=== PATIENT | male | born 1945 | race Caucasian/White ===

== ENCOUNTER 2017-12-07 18:30 | Emergency (ER) | payer OTHER ==
--- NOTE | 2017-12-07 23:12 | EDPHYS ---
Physician Documentation [facility] Name: Feliciano Polo Age: 72 yrs Sex: Male : 1945 Arrival Date: 12/07/2017 Time: 18:39 Bed 11 Private MD: out of town, doctor ED Physician Steven Espinal HPI: 12/07 21:10 This 72 yrs old Male presents to ER via Ambulatory with complaints of pm1 Swelling Left Elbow. 21:10 The patient or guardian complains of swelling. The complaints affect the left elbow. pm1 Context: The problem was sustained at home, resulted from unknown cause, no trauma or injury. Onset: The symptoms/episode began/occurred 3 day(s) ago. Treatment prior to arrival includes: no previous treatment. Modifying factors: The symptoms are alleviated by nothing. the symptoms are aggravated by nothing. Associated signs and symptoms: Pertinent negatives: decreased range of motion, deformity, fever, numbness, pain, tingling, warmth. Severity of symptoms: in the emergency department the symptoms are unchanged, No better but no worse. The patient has not experienced similar symptoms in the past. Historical: - Allergies: 19:52 No Known Allergies; ea - Home Meds: 19:50 Aspirin Childrens 81 mg oral chew 1 tab once daily [Active]; lisinopril Oral [Active]; ea escitalopram oxalate 10 mg oral tab [Active]; Nexium Oral [Active]; gabapentin oral oral [Active]; Crestor oral oral [Active]; Eliquis oral oral [Active]; - PMHx: 19:52 neck cancer; High Cholesterol; ea - PSHx: 19:52 trache; ea - Immunization history:: Adult Immunizations up to date. - Social history:: Smoking status: Patient/guardian denies using tobacco. - Ebola Screening: : Patient negative for fever greater than or equal to 101.5 degrees Fahrenheit, and additional compatible Ebola Virus Disease symptoms Patient denies exposure to infectious person Patient denies travel to an Ebola-affected area in the 21 days before illness onset. ROS: 21:10 Constitutional: Negative for fever, chills, and weight loss, Neck: Negative for injury, pm1 pain, and swelling, Cardiovascular: Negative for chest pain, palpitations, and edema, Respiratory: Negative for shortness of breath, cough, wheezing, and pleuritic chest pain, Abdomen/GI: Negative for abdominal pain, nausea, vomiting, diarrhea, and constipation, Back: Negative for injury and pain. 21:10 Skin: Negative for injury, rash, and discoloration, Neuro: Negative for headache, weakness, numbness, tingling, and seizure. 21:10 MS/extremity: Positive for swelling, of the left elbow, Negative for pain. Exam: 21:10 Constitutional: This is a well developed, well nourished patient who is awake, alert, pm1 and in no acute distress. Head/Face: Normocephalic, atraumatic. Chest/axilla: Normal chest wall appearance and motion. Nontender with no deformity. No lesions are appreciated. Cardiovascular: Regular rate and rhythm with a normal S1 and S2. No gallops, murmurs, or rubs. Normal PMI, no JVD. No pulse deficits. Respiratory: Lungs have equal breath sounds bilaterally, clear to auscultation and percussion. No rales, rhonchi or wheezes noted. No increased work of breathing, no retractions or nasal flaring. Back: No spinal tenderness. No costovertebral tenderness. Full range of motion. Skin: Warm, dry with normal turgor. Normal color with no rashes, no lesions, and no evidence of cellulitis. 21:10 Musculoskeletal/extremity: Extremities: grossly normal except: noted in the left elbow: swelling, There is no evidence of decreased ROM, deformity, erythema, puncture, tenderness. 21:10 Neuro: Orientation: is normal, Motor: is normal, moves all fours. Vital Signs: 19:42 BP 145 / 109; Pulse 84; Resp 20; Temp 98.2(O); Pulse Ox 94% on R/A; Weight 77.11 kg; ea Height 5 ft. 11 in. (180.34 cm) (R); Pain 0/10; 19:42 Body Mass Index 23.71 (77.11 kg, 180.34 cm) ea MDM: 23:01 Patient medically screened. pm1 23:10 Data reviewed: vital signs. Counseling: I had a detailed discussion with the patient pm1 and/or guardian regarding: the historical points, exam findings, and any diagnostic results supporting the discharge/admit diagnosis, radiology results, the need for outpatient follow up, to return to the emergency department if symptoms worsen or persist or if there are any questions or concerns that arise at home. 12/07 20:43 Order name: Elbow Left 3 View XRAY fc Administered Medications: No medications were administered Disposition: 12/07/17 23:11 Discharged to Home. Impression: Olecranon bursitis, left elbow. - Condition is Stable. - Discharge Instructions: Olecranon Bursitis. - Medication Reconciliation Form, Thank You Letter form. - Follow up: Emergency Department; When: As needed; Reason: Worsening of condition. Follow up: Private Physician; When: 2 - 3 days; Reason: Recheck today's complaints, Continuance of care, Re-evaluation by your physician. - Problem is new. - Symptoms have improved. - Notes: Take ibuprofen as needed for swelling and pain Addendum: 12/10/2017 09:26 Co-signature as Attending Physician, Steven Espinal MD I agree with the assessment and c sarabia plan of care. Signatures: Dispatcher [employer] EDNH Steven Espinal MD MD cha Chretien, Felicia, RN RN Mateo Chamberlain, [employer] pm1 Anaamria Dobson RN RN ea Corrections: (The following items were deleted from the chart) 12/07 23:16 23:11 12/07/2017 23:11 Discharged to Home. Impression: Olecranon bursitis, left elbow. fc Condition is Stable. Forms are Medication Reconciliation Form, Thank You Letter, Antibiotic Education, Prescription Opioid Use. Follow up: Emergency Department; When: As needed; Reason: Worsening of condition. Follow up: Private Physician; When: 2 - 3 days; Reason: Recheck today's complaints, Continuance of care, Re-evaluation by your physician. Problem is new. Symptoms have improved. pm1
--- NOTE | 2017-12-07 23:12 | ER ---
Nurse's Notes [facility] Name: Feliciano Polo Age: 72 yrs Sex: Male : 1945 Arrival Date: 12/07/2017 Time: 18:39 Bed 11 Private MD: out of town, doctor Diagnosis: Olecranon bursitis, left elbow Presentation: 12/07 19:44 Presenting complaint: Patient states: Patient reports he noticed swelling to the left ea elbow on the . Reports the swelling has not gotten worse but has not decreased since. Transition of care: patient was not received from another setting of care. Onset of symptoms was December 07, 2017. Risk Assessment: Do you want to hurt yourself or someone else? Patient reports no desire to harm self or others. Care prior to arrival: None. 19:44 Method Of Arrival: Ambulatory ea 19:44 Acuity: DONALD 4 ea 23:16 Initial Sepsis Screen: Does the patient meet any 2 criteria? No. Patient's initial fc sepsis screen is negative. Does the patient have a suspected source of infection? No. Patient's initial sepsis screen is negative. Triage Assessment: 19:50 General: Appears in no apparent distress. Behavior is calm, cooperative, appropriate ea for age. Pain: Denies pain. Derm: swelling noted to left elbow, pt denies pain to area. Historical: - Allergies: 19:52 No Known Allergies; ea - Home Meds: 19:50 Aspirin Childrens 81 mg oral chew 1 tab once daily [Active]; lisinopril Oral [Active]; ea escitalopram oxalate 10 mg oral tab [Active]; Nexium Oral [Active]; gabapentin oral oral [Active]; Crestor oral oral [Active]; Eliquis oral oral [Active]; - PMHx: 19:52 neck cancer; High Cholesterol; ea - PSHx: 19:52 trache; ea - Immunization history:: Adult Immunizations up to date. - Social history:: Smoking status: Patient/guardian denies using tobacco. - Ebola Screening: : Patient negative for fever greater than or equal to 101.5 degrees Fahrenheit, and additional compatible Ebola Virus Disease symptoms Patient denies exposure to infectious person Patient denies travel to an Ebola-affected area in the 21 days before illness onset. Screenin:51 Abuse screen: Denies threats or abuse. Nutritional screening: No deficits noted. fc Tuberculosis screening: No symptoms or risk factors identified. Fall Risk None identified. Assessment: 21:51 General: Appears uncomfortable, slender, Behavior is calm, cooperative, appropriate for fc age. Pain: Complains of pain in left elbow Quality of pain is described as aching, dull, throbbing, Pain began 2-3 days ago. Is continuous, Aggravated by increased activity, repositioning. Neuro: Level of Consciousness is awake, alert, obeys commands, Oriented to person, place, time, situation. Cardiovascular: No deficits noted. Respiratory: Reports. GI: No signs and/or symptoms were reported involving the gastrointestinal system. : No deficits noted. EENT: No deficits noted. Derm: Skin is pink, warm \T\ dry. Musculoskeletal: Circulation, motion, and sensation intact. Capillary refill < 3 seconds, Range of motion: intact in all extremities, Swelling present in left elbow Reports pain in left elbow. 22:05 Reassessment: No changes from previously documented assessment. Patient and/or family fc updated on plan of care and expected duration. Pain level reassessed. Patient is alert, oriented x 3, equal unlabored respirations, skin warm/dry/pink. Xrays completed. 23:00 Reassessment: No changes from previously documented assessment. Patient and/or family fc updated on plan of care and expected duration. Pain level reassessed. Patient is alert, oriented x 3, equal unlabored respirations, skin warm/dry/pink. Pt pending discharge. Vital Signs: 19:42 BP 145 / 109; Pulse 84; Resp 20; Temp 98.2(O); Pulse Ox 94% on R/A; Weight 77.11 kg; ea Height 5 ft. 11 in. (180.34 cm) (R); Pain 0/10; 19:42 Body Mass Index 23.71 (77.11 kg, 180.34 cm) ea ED Course: 18:39 Patient arrived in ED. mr 18:39 out of town, doctor is Private Physician. mr 19:47 Triage completed. ea 21:51 Arm band placed on Patient placed in an exam room. fc 21:51 Patient has correct armband on for positive identification. Call light in reach. fc 21:51 No provider procedures requiring assistance completed. Patient did not have IV access fc during this emergency room visit. 22:42 Elbow Left 3 View XRAY In Process Unspecified. EDMS 23:01 Mateo Garza NP is PHCP. pm1 23:01 Steven Espinal MD is Attending Physician. pm1 Administered Medications: No medications were administered Outcome: 23:11 Discharge ordered by . pm1 23:15 Discharged to home ambulatory. fc 23:15 Condition: good 23:15 Discharge instructions given to patient, Instructed on discharge instructions, follow up and referral plans. medication usage, ibuprofen use and ice pack Demonstrated understanding of instructions, follow-up care, medications, ibuprofen and ice pack Prescriptions given X none 23:16 Patient left the ED. fc Signatures: Dispatcher [employer] EDKY Sarah Mcclain mr Alexa Whiting RN RN Mateo Garza NP [employer] pm1 Anamaria Dobson RN RN ea Corrections: (The following items were deleted from the chart) 23:15 23:00 Reassessment: No changes from previously documented assessment. Patient and/or fc family updated on plan of care and expected duration. Pain level reassessed. Patient is alert, oriented x 3, equal unlabored respirations, skin warm/dry/pink. fc
--- NOTE | 2017-12-08 08:57 | RAD REPORT ---
EXAM DESCRIPTION: RAD - Elbow Left 3 View - 12/07/2017 10:42 pm CLINICAL HISTORY: Soft tissue swelling COMPARISON: None. FINDINGS: No fracture is identified and no elevated posterior fat pad. There is no dislocation or pe riosteal reaction noted. Prominent soft tissue swelling posterior to the elbow joint. Has an acute o nset finding an olecranon bursitis would be suspected. IMPRESSION: Suspected olecranon bursitis. No acute bone or joint finding.
== END 2017-12-07 23:16 | disposition home or self-care (01) ==
LOC: ER 18:30
DX: M70.22 Olecranon bursitis, left elbow (principal); E78.00 Pure hypercholesterolemia, unspecified; Z85.89 Personal history of malignant neoplasm of other organs and systems; Z79.01 Long term (current) use of anticoagulants; Z79.82 Long term (current) use of aspirin
CPT/HCPCS: 99283

== ENCOUNTER 2018-10-09 22:25 | Emergency (ER) | payer OTHER ==
--- OUTSIDE RECORDS SUMMARY | 2018-10-09 22:28 | XMS REPORT | Clinical Summary ---
:1945 Author Organization [facility] Address [address] [place] [address] Care Team Providers Name Role Phone Asked, No Pcp Primary Care Provider Unavailable Allergies Active Allergy Reactions Severity Noted Date Comments Mirtazapine 12/13/2015 Drowsiness. Medications Medication Sig Dispensed Refills Start Date End Date Status rosuvastatin (CRESTOR) 40 mg by g-tube 0 Active 40 MG tablet route daily. METOPROLOL TARTRATE 12.5 mg by g-tube 0 Active 12.5 MG PO SPLIT TABLET route every 8 (LOPRESSOR) (eight) hours. Hold for systolic 130 or Heart rate below 55 aspirin (ECOTRIN) 81 MG 81 mg daily. 0 Active enteric coated tablet Given per PEG famotidine (PEPCID) 20 20 mg by g-tube 0 Active MG tablet route daily. escitalopram (LEXAPRO) 10 mg by g-tube 0 Active 10 MG tablet route daily. levocetirizine (XYZAL) 5 mg by g-tube 0 Active 5 MG tablet route every evening. gabapentin (NEURONTIN) 100 mg by feeding 0 Active 100 mg capsule tube route 2 (two) times a day. chlorhexidine (PERIDEX) 15 mL daily. 0 Active 0.12 % solution Active Problems Problem Noted Date Dysarthria 05/23/2018 Other dysphagia 05/23/2018 Sleep-related hypoventilation due to neuromuscular disorder 05/23/2018 Laryngeal cancer 01/16/2018 Overview: Overview: Added automatically from request for surgery [id number] Oral thrush 10/20/2017 Other pulmonary embolism without acute cor pulmonale 10/15/2017 History of squamous cell carcinoma 10/07/2017 Lobar pneumonia 10/07/2017 Postural hypotension 05/06/2017 Overview: Last Assessment & Plan: Likely secondary to baroreceptor reflex failure. -Advised to incorporate bilateral leg compression stockings when standing or ambulating to alleviate postural dizziness. - given recent h/o hemorrhagic stroke and recently uncontrolled HTN, will defer resuming Midodrine. - advised to maintain BP diary FU in 2-3 weeks or sooner if needed. Microcytic anemia 01/01/2017 Intracranial hemorrhage 12/31/2016 Overview: Overview: 2016 Last Assessment & Plan: Patient admitted to MICU from with R sided weakness and gait problems. Right sided weakness has resolved. CT Head demonstrated L Basal Ganglia hemorrhage, not able to determine if underlying lesion or spontaneous or hypertensive hemorrrhage. MRI shows no evidence of metastatic lesion. NSG following; no indication for surgical intervention HOB greater than 30 degrees Neuro monitoring Maintain SBP 130-150 mmHg Maintain sodium 145 Hold anticoagulation and ASA until cleared by Neuro PT/OT Weakness of shoulder 08/24/2016 Muscle wasting and atrophy, not elsewhere classified, unspecified site 2015 Neck pain 05/30/2016 Stiffness of left shoulder joint 05/30/2016 Stiffness of right shoulder joint 05/30/2016 High prostate specific antigen (PSA) 03/14/2016 Overview: Overview: DX problem list Shortness of breath 07/05/2015 Syncope and collapse 01/05/2015 Vision changes 07/15/2014 Essential hypertension 07/02/2014 Overview: Last Assessment & Plan: I recommend to continue metoprolol suspension 12.5 mg when BP > 140. If BP still > 140 after 1 hour, then take lisinpril 10 mg. If his BP > 180 prior to taking and medications, then take lisino pril as first line and continue to monitor blood pressures twice daily. Chronic coronary artery disease 06/01/2014 Overview: Last Assessment & Plan: CAD s/p drug-eluting stent to LAD in 2006 and PTCA to RCA in 1993. Now complains of persistent shortness breath exertion as well as some chest discomfort. He has not had an ischemic workup since the foreign e of his LAD stenting. Therefore I will arrange for a nuclear stress test and 2 -D complete echocardiogram to be performed for assessment. Recommended continue aspirin 81 milligrams one tab by mouth jenni y, Crestor 40 milligrams 1 tab by mouth daily and metoprolol 12.5 milligrams by mouth daily. 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 Myasthenia gravis with exacerbation 09/02/2018 Encounters Date Type Specialty Care Team Description 09/09/2018 Telephone Neurology Chantel Gomes RN 09/02/2018 Office Visit Neurology Cathy Alfaro Sleep-related hypoventilation due to neuromuscular disorder (HCC) (Primary Dx); MD Brannon Laryngeal cancer ([facility]); History of squamous cell carcinoma 06/25/2018 Telephone Neurology Cathy Alfaro MD 06/20/2018 Hospital Encounter Radiology Cathy Alfaro MD 06/20/2018 Hospital Encounter Radiology Cathy Alfaro MD 06/20/2018 Hospital Encounter Radiology Cathy Alfaro MD 06/20/2018 Hospital Encounter Radiology Cathy Alfaro MD 06/20/2018 Hospital Encounter Radiology Cathy Alfaro MD 06/19/2018 Hospital Encounter Radiology Cathy Alfaro MD 06/19/2018 Hospital Encounter Radiology Martha Huerta-related MD Sanjuana hypoventilation due to neuromuscular disorder (HCC) 06/19/2018 Procedure visit Neurology Cathy Alfaro Shortness of breath MD Brannon (Primary Dx) 06/18/2018 Procedure visit Neurology Cathy Alfaro Shortness of breath ( Primary Dx); MD Brannon Sleep-related hypoventilation due to neuromuscular disorder (HCC) ; Other dysphagia; Dysarthria 06/18/2018 Social Work Neurology Lo Lara, DIANELYS 06/17/2018 Hospital Encounter Radiology Cathy Alfaro Sleep-related hypoventilation due to neuromuscular disorder (HCC); MD Brannon Other dysphagia; Dysarthria 06/17/2018 Hospital Encounter Radiology Cathy Alfaro Sleep-related hypoventilation due to neuromuscular disorder (HCC); MD Brannon Other dysphagia; Dysarthria 06/17/2018 Procedure visit Neurology Cathy Alfaro Supine hypertension ( Primary Dx); MD Brannon Sleep-related hypoventilation due to neuromuscular disorder (HCC) ; Other dysphagia; Dysarthria; Idiopathic progressive polyneuropathy 06/17/2018 Hospital Encounter Pulmonology Cathy Alfaro-related MD Brannon hypoventilation due to neuromuscular disorder (HCC) 05/27/2018 Telephone Neurology Cathy Alfaro MD 05/26/2018 Orders Only Neurology Mireya, Sleep-related hypoventilation due to neuromuscular disorder (HCC) (Primary Dx); AKUA Golden Other dysphagia; Dysarthria 05/23/2018 Orders Only Neurology Cathy Alfaro Sleep-related hypoventilation due to neuromuscular disorder (HCC) (Primary Dx); MD Brannon Other dysphagia; Dysarthria 05/20/2018 Telephone Neurology Cathy Alfaro MD 01/09/2018 Telephone General Surgery Silvia Faria MA after 10/08/2017 Family History Medical History Relation Name Comments Anuerysm Father Relation Name Status Comments Father Mother Social History Tobacco Use Types Packs/Day Years Used Date Never Smoker Smokeless Tobacco: Never Used Alcohol Use Drinks/Week oz/Week Comments Yes o CCASSIONALLY Sex Assigned at Date Recorded Not on file Job Start Date Occupation Industry Not on file Not on file Not on file Travel History Travel Start Travel End No recent travel history available. Last Filed Vital Signs Vital Sign Reading Time Taken Blood Pressure 159/98 09/02/2018 8:32 AM [employer] Pulse 71 09/02/2018 8:32 AM [employer] Temperature 36.5 C (97.7 F) 06/19/2018 3:28 PM [employer] Respiratory Rate 20 06/19/2018 5:15 PM [employer] Oxygen Saturation 93% 06/19/2018 5:15 PM [employer] Inhaled Oxygen Concentration - - Weight 81.5 kg (179 lb 11.2 oz) 09/02/2018 8:32 AM [employer] Height 180.3 cm (5' 11") 09/02/2018 8:32 AM [employer] Body Mass Index 25.06 09/02/2018 8:32 AM [employer] Plan of Treatment Date Type Specialty Care Team Description 09/07/2019 Office Visit Neurology Cathy Alfaro MD [address] [facility] [address] [place] [address] Health Maintenance Due Date Last Done Comments COLON CANCER SCREENING 1996 SHINGLES VACCINES (#1) 1996 65+ PNEUMOCOCCAL VACCINE (1 of 2 - PCV13) 09/13/2011 PNEUMOCOCCAL POLYSACCHARIDE VACCINE AGE 65 AND OVER 09/13/2011 INFLUENZA VACCINE 02/12/2018 Procedures Procedure Name Priority Date/Time Associated Diagnosis Comments LYME DISEASE REFLEXIVE Routine 06/19/2018 6:56 Results for this PANEL, CSF PM [employer] procedure are in the results section. OLIGOCLONAL BANDING, Routine 06/19/2018 6:56 Results for this CSF PM [employer] procedure are in the results section. VDRL, CSF SCREEN Routine 06/19/2018 6:56 Results for this PM [employer] procedure are in the results section. MYELIN BASIC PROTEIN Routine 06/19/2018 6:56 Results for this PM [employer] procedure are in the results section. CSF CELL COUNT WITH Routine 06/19/2018 6:56 Results for this DIFFERENTIAL PM [employer] procedure are in the results section. GLUCOSE LEVEL, CSF Routine 06/19/2018 6:56 Results for this PM [employer] procedure are in the results section. IR LUMBAR PUNCTURE Routine 06/19/2018 3:15 Sleep-related Results for this PM [employer] hypoventilation due to procedure are in neuromuscular disorder the results (HCC) section. Other dysphagia Dysarthria FL FLUOROSCOPY OF Routine 06/19/2018 1:20 Sleep-related Results for this DIAPHRAGM NO FILMS PM [employer] hypoventilation due to procedure are in neuromuscular disorder the results (HCC) section. ARTERIAL BLOOD GAS Routine 06/19/2018 8:30 Shortness of breath Results for this AM [employer] procedure are in the results section. CYTOLOGY Routine 06/19/2018 5:11 Results for this (NON-GYNECOLOGICAL) AM [employer] procedure are in REQUEST the results section. EMG Routine 06/17/2018 2:16 Sleep-related Results for this PM [employer] hypoventilation due to procedure are in neuromuscular disorder the results (HCC) section. Other dysphagia Dysarthria SPIROMETRY, MIPS/MEPS Routine 06/17/2018 9:04 Sleep-related Results for this AM [employer] hypoventilation due to procedure are in neuromuscular disorder the results (HCC) section. IGG SYNTHESIS RATE Routine 06/17/2018 7:27 Results for this STUDY AM [employer] procedure are in the results section. IGG SYNTHESIS RATE Routine 06/17/2018 7:27 Sleep-related Results for this STUDY AM [employer] hypoventilation due to procedure are in neuromuscular disorder the results (HCC) section. Other dysphagia Dysarthria ESTIMATED GFR Routine 06/17/2018 7:27 Results for this AM [employer] procedure are in the results section. ACETYLCHOLINE RECEPTOR Routine 06/17/2018 7:27 Sleep-related Results for this BINDING AB AM [employer] hypoventilation due to procedure are in neuromuscular disorder the results (HCC) section. Other dysphagia Dysarthria ACETYLCHOLINE RECEPTOR Routine 06/17/2018 7:27 Sleep-related Results for this BLOCKING AB AM [employer] hypoventilation due to procedure are in neuromuscular disorder the results (HCC) section. Other dysphagia Dysarthria ACETYLCHOLINE RECEPTOR Routine 06/17/2018 7:27 Sleep-related Results for this MODULATING AB AM [employer] hypoventilation due to procedure are in neuromuscular disorder the results (HCC) section. Other dysphagia Dysarthria VLADISLAV Routine 06/17/2018 7:27 Sleep-related Results for this AM [employer] hypoventilation due to procedure are in neuromuscular disorder the results (HCC) section. Other dysphagia Dysarthria BASIC METABOLIC PANEL Routine 06/17/2018 7:27 Sleep-related Results for this AM [employer] hypoventilation due to procedure are in neuromuscular disorder the results (HCC) section. Other dysphagia Dysarthria HC COMPLETE BLD COUNT Routine 06/17/2018 7:27 Sleep-related Results for this W/AUTO DIFF AM [employer] hypoventilation due to procedure are in neuromuscular disorder the results (HCC) section. Other dysphagia Dysarthria CREATINE KINASE, TOTAL Routine 06/17/2018 7:27 Sleep-related Results for this (CPK) AM [employer] hypoventilation due to procedure are in neuromuscular disorder the results (HCC) section. Other dysphagia Dysarthria C-REACTIVE PROTEIN Routine 06/17/2018 7:27 Sleep-related Results for this AM [employer] hypoventilation due to procedure are in neuromuscular disorder the results (HCC) section. Other dysphagia Dysarthria GM1 AB PANEL Routine 06/17/2018 7:27 Sleep-related Results for this AM [employer] hypoventilation due to procedure are in neuromuscular disorder the results (HCC) section. Other dysphagia Dysarthria HEMOGLOBIN A1C Routine 06/17/2018 7:27 Sleep-related Results for this AM [employer] hypoventilation due to procedure are in neuromuscular disorder the results (HCC) section. Other dysphagia Dysarthria HEPATIC FUNCTION PANEL Routine 06/17/2018 7:27 Sleep-related Results for this AM [employer] hypoventilation due to procedure are in neuromuscular disorder the results (HCC) section. Other dysphagia Dysarthria HTLV I/II AB WITH Routine 06/17/2018 7:27 Sleep-related Results for this REFLEX TO CONFIRMATION AM [employer] hypoventilation due to procedure are in neuromuscular disorder the results (HCC) section. Other dysphagia Dysarthria SYPHILIS TREPONEMAL Routine 06/17/2018 7:27 Sleep-related Results for this IGG AM [employer] hypoventilation due to procedure are in neuromuscular disorder the results (HCC) section. Other dysphagia Dysarthria SEDIMENTATION RATE Routine 06/17/2018 7:27 Sleep-related Results for this AM [employer] hypoventilation due to procedure are in neuromuscular disorder the results (HCC) section. Other dysphagia Dysarthria SERUM ELECTROPHORESIS Routine 06/17/2018 7:27 Sleep-related Results for this AM [employer] hypoventilation due to procedure are in neuromuscular disorder the results (HCC) section. Other dysphagia Dysarthria T3 Routine 06/17/2018 7:27 Sleep-related Results for this AM [employer] hypoventilation due to procedure are in neuromuscular disorder the results (HCC) section. Other dysphagia Dysarthria T4, FREE Routine 06/17/2018 7:27 Sleep-related Results for this AM [employer] hypoventilation due to procedure are in neuromuscular disorder the results (HCC) section. Other dysphagia Dysarthria THYROID STIMULATING Routine 06/17/2018 7:27 Sleep-related Results for this HORMONE AM [employer] hypoventilation due to procedure are in neuromuscular disorder the results (HCC) section. Other dysphagia Dysarthria STRIATED MUSCLE AB, Routine 06/17/2018 7:27 Sleep-related Results for this IGG WITH REFLEX TO AM [employer] hypoventilation due to procedure are in TITER neuromuscular disorder the results (HCC) section. Other dysphagia Dysarthria RHEUMATOID FACTOR Routine 06/17/2018 7:27 Sleep-related Results for this AM [employer] hypoventilation due to procedure are in neuromuscular disorder the results (HCC) section. Other dysphagia Dysarthria PROTHROMBIN TIME WITH Routine 06/17/2018 7:27 Sleep-related Results for this INR AM [employer] hypoventilation due to procedure are in neuromuscular disorder the results (HCC) section. Other dysphagia Dysarthria PARTIAL THROMBOPLASTIN Routine 06/17/2018 7:27 Sleep-related Results for this TIME (PTT) AM [employer] hypoventilation due to procedure are in neuromuscular disorder the results (HCC) section. Other dysphagia Dysarthria PARATHYROID HORMONE Routine 06/17/2018 7:27 Sleep-related Results for this AM [employer] hypoventilation due to procedure are in neuromuscular disorder the results (HCC) section. Other dysphagia Dysarthria B. BURGDORFERI ABS Routine 06/17/2018 7:27 Sleep-related Results for this TOTAL, SERUM AM [employer] hypoventilation due to procedure are in neuromuscular disorder the results (HCC) section. Other dysphagia Dysarthria VITAMIN D 25 HYDROXY Routine 06/17/2018 7:27 Sleep-related Results for this LEVEL AM [employer] hypoventilation due to procedure are in neuromuscular disorder the results (HCC) section. Other dysphagia Dysarthria VITAMIN B12 LEVEL Routine 06/17/2018 7:27 Sleep-related Results for this AM [employer] hypoventilation due to procedure are in neuromuscular disorder the results (HCC) section. Other dysphagia Dysarthria CT CHEST EXTERNAL Routine 05/14/2018 7:08 Results for this STUDY PM CDT procedure are in the results section. CT HEAD EXTERNAL STUDY Routine 10/20/2017 10:41 Results for this AM CDT procedure are in the results section. CT CHEST EXTERNAL Routine 10/15/2017 3:26 Results for this STUDY PM CDT procedure are in the results section. after 10/08/2017 Results Lyme disease reflexive panel, CSF (06/19/2018 6:56 PM [employer]) B. burgdorferi Abs LISA, 0.06 <=0.99 [facility] CSF Comment: When the Borrelia burgdorferi Abs, Total by LISA result is negative, no further testing is done. INTERPRETIVE INFORMATION: Borrelia burgdorferi Abs, LISA, CSF 0.99 CASEY or less: ......... Negative - Antibody to B. burgdorferi not detected. 1.00 - 1.20 CASEY ........... Equivocal - Repeat testing in 10-14 days may be helpful. 1.21 CASEY or greater: ...... Positive - Probable presence of antibody to B. burgdorferi detected. The detection of antibodies to B. burgdorferi in cerebrospinal fluid may indicate central nervous system infection.However, consideration must be given to possible contamination by blood or transfer of serum antibodies across the blood-brain barrier. Current CDC recommendations for the serologic diagnosis of Lyme disease are to screen with a polyvalent LISA test and confirm equivocal and positive results with immunoblot.Both IgM and IgG immunoblots should be performed on samples less than 4 weeks after appearance of erythema migrans.Only IgG immunoblot should be performed on samples greater than 4 weeks after the disease onset. IgM immunoblot in the chronic stage is not recommended and does not aid in the diagnosis of neuroborreliosis or chronic Lyme disease.Please submit requests for appropriate immunoblot testing within 10 days. Test developed and characteristics determined by [employer]. See Compliance Statement B: [employer]/ Performed by [employer], [address] [place] [address] [email or web address], Hood Mckeon MD - Lab. Director Specimen Cerebrospinal fluid Performing Organization Address City/[facility]/Zipcode Phone Number [facility] [address] [place] [address] [facility] [address] [place] [address] Oligoclonal banding, CSF (06/19/2018 6:56 PM [employer]) Protein, CSF 32 15 - 45 mg/dL [facility] Prealbumin, CSF 5.6 3.5 - 11.1 % [facility] Albumin, CSF 58.8 40.8 - 66.2 % [facility] Alpha 1, CSF 3.5 2.3 - 6.4 % [facility] Alpha 2, CSF 8.4 6.1 - 12.6 % [facility] Beta, CSF 17.1 11.7 - 24.1 % [facility] Gamma, CSF 6.6 5.6 - 12.2 % [facility] CSF extended interpretation See Comment [facility] Comment: HOSPITAL A normal CSF protein study with normal indices and no oligoclonal bands seen. CSF interpretation See CommentComment: [facility] Kavya Woods MD; [facility] Eunice Morales, PhD; Pari Sevilla MD Specimen Cerebrospinal fluid Performing Organization Address City/State/Zipcode Phone Number [facility] DEPARTMENT OF PATHOLOGY AND [address] [place] [phone] [facility] [address] [address] CSF cell count with differential (06/19/2018 6:56 PM [employer]) Color, CSF Colorless [facility] Appearance, CSF Clear [facility] RBC, CSF 0 0 - 1 /CMM [facility] WBC, CSF 2 0 - 5 /CMM [facility] CSF mononuclear cell 2/CMM [facility] Specimen Cerebrospinal fluid Performing Organization Address City/[facility] Phone Number [facility] DEPARTMENT OF PATHOLOGY AND [address] [place] [phone] VDRL, CSF screen (06/19/2018 6:56 PM [employer]) VDRL, CSF screen Non-reactive Non-reactive [facility] Specimen Cerebrospinal fluid Performing Organization Address City/[facility]/Zipcode Phone Number [facility] DEPARTMENT OF PATHOLOGY AND [address] [place] [phone] Myelin basic protein (06/19/2018 6:56 PM [employer]) Myelin basic protein 2.94 0.00 - 5.50 ng/mL [facility] Comment: INTERPRETIVE INFORMATION:Myelin Basic Protein Test developed and characteristics determined by [employer]. See Compliance Statement D: [employer]/CS Performed by [employer], [address] [place] [id number] [email or web address], Hood Mckeon MD - Lab. Director Specimen Cerebrospinal fluid Performing Organization Address [facility] Phone Number [facility] [address] [place] [address] [facility] [address] [place] [address] Glucose level, CSF (06/19/2018 6:56 PM [employer]) Glucose, CSF 60 40 - 70 mg/dL [facility] Specimen Cerebrospinal fluid Performing Organization Address [facility] Centercode Phone Number [facility] DEPARTMENT OF PATHOLOGY AND [address] [place] [phone] IR Lumbar Puncture by Radiology (06/19/2018 3:15 PM [employer]) Narrative Performed At EXAMINATION:IR LUMBAR PUNCTURE [facility] CLINICAL HISTORY:G70.9 Myoneural disorderunspecified, G47.36 Sleep related hypoventilation in conditions classified elsewhere, MND EVALUATION COMPARISON:None. Findings: Informed consent was obtained. Lower back was prepped and draped in usual sterile fashion. 1% lidocaine was used for local anesthesia. A 22-gauge 3.5 inch needle was advanced into spinal canal at the L3-4 level under intermittent fluoroscopic guidance. 12 cc of clear CSF fluid was withdrawn. No complications. Total fluoroscopic time was 0.4 minutes. No exposure images were obtained. IMPRESSION: Successful fluoroscopic guided lumbar puncture. [facility]-[id number] Procedure Note Interface, Radiology Results Incoming - 06/19/2018 3:52 PM [employer] EXAMINATION: IR LUMBAR PUNCTURE CLINICAL HISTORY: G70.9 Myoneural disorder unspecified, G47.36 Sleep related hypoventilation in conditions classified elsewhere, MND EVALUATION COMPARISON: None. Findings: Informed consent was obtained. Lower back was prepped and draped in usual sterile fashion. 1% lidocaine was used for local anesthesia. A 22-gauge 3.5 inch needle was advanced into spinal canal at the L3-4 level under intermittent fluoroscopic guidance. 12 cc of clear CSF fluid was withdrawn. No complications. Total fluoroscopic time was 0.4 minutes. No exposure images were obtained. IMPRESSION: Successful fluoroscopic guided lumbar puncture. [facility]-[id number] Performing Organization Address City/State/Zipcode Phone Number [facility] [address] [place] [address] [place] Fluoroscopy Of Diaphragm No Films (06/19/2018 1:20 PM [employer]) Narrative Performed At [place] FLUOROSCOPY OF [facility]APHRAGM NO [facility] CLIN[facility]:G70.9 Myoneural disorderunspecified, G47.36 Sleep related hypoventilation in conditions classified elsewhere, Shortness of breath TECHNIQUE: Diaphragms were observed under fluoroscopy during quiet and deep breathing and with sniff testing. COMPARISON:None. DOSE: 10 mGy (ka,r) FINDINGS: There is relative elevation of the right more the left hemidiaphragm. Minimal diaphragmatic excursion was noted with inspiratory and expiratory maneuvers. No. Occipital motion of the diaphragm was appreciated, however, this could potentially be due to the minimal degree of diaphragmatic excursion and inability to appreciate any . IMPRESSION: Limited diaphragmatic excursion without definitive findings for paradoxical motion. Thank you for allowing us to participate in the care of your patient. [facility]-[id number] Procedure Note Interface, Radiology Results Incoming - 06/20/2018 8:14 AM SERVICE LINE BUS CLEANER [place] FLUOROSCOPY OF DIAPHRAGM NO FILMS CLINICAL HISTORY: G70.9 Myoneural disorder unspecified, G47.36 Sleep related hypoventilation in conditions classified elsewhere, Shortness of breath TECHNIQUE: Diaphragms were observed under fluoroscopy during quiet and deep breathing and with sniff testing. COMPARISON: None. DOSE: 10 mGy (ka,r) FINDINGS: There is relative elevation of the right more the left hemidiaphragm. Minimal diaphragmatic excursion was noted with inspiratory and expiratory maneuvers. No. Occipital motion of the diaphragm was appreciated, however, this could potentially be due to the minimal degree of diaphragmatic excursion and inability to appreciate any . IMPRESSION: Limited diaphragmatic excursion without definitive findings for paradoxical motion. Thank you for allowing us to participate in the care of your patient. [facility]-[id number] Performing Organization Address City/[facility]/Zipcode Phone Number [facility] [address] [place] [phone] Arterial blood gas (06/19/2018 8:30 AM SERVICE LINE BUS CLEANER) pH, arterial 7.41 7.35 - 7.45 [facility] pCO2, arterial 50 (H) 35 - 45 mmHg [facility] pO2, arterial 55 (L) 80 - 90 mmHg [facility] Bicarbonate, arterial 31.1 (H) 21.0 - 28.0 mmol/L [facility] Base excess, arterial 6 (H) -2 - 2 mEq/L [facility] O2 saturation, arterial 88 (L) 95 - 100 % [facility] Specimen Blood Performing Organization Address [facility] Phone Number [facility] DEPARTMENT OF PATHOLOGY AND [address] [place] [phone] GENOMIC MED[address]INE [address] [address] Cytology (non-gynecological) request (06/19/2018 5:11 AM SERVICE LINE BUS CLEANER) [facility] DEPARTMENT OF PATHOLOGY AND GENOMIC MEDICINE Cytology See link below for PDF [facility] DEPARTMENT OF (non-gynecological) report Lab Report PATHOLOGY AND GENOMIC MEDICINE Result status This is Final Report [facility] DEPARTMENT OF for [id number] PATHOLOGY AND GENOMIC MEDICINE Performing Organization Address [facility] Phone Number [facility] DEPARTMENT OF PATHOLOGY AND [address] [place] [address] GENOMIC MEDICINE EMG general request (06/17/2018 2:16 PM SERVICE LINE BUS CLEANER) Impressions Performed At 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 1) Right median motor latency is delayed with slightly slowed velocity and normal amplitude; right ulnar motor latency is mildly delayed with slightly slowed velocity and low normal ampltiudes. 2) Phrenic motor latencies are bilaterally mildly delayed with low normal amplitudes. 3) Right peroneal motor responses are absent; left peroneal motor latency is delayed with very small amplitude and absent proximal responses. 4) Tibial motor latencies are bilaterally normal with borderline normal velocities, small amplitudes on the right and slightly small amplitudes on the left. 5) Right median F Wave responses are normal; right ulnar and bilateral tibial F Wave responses are delayed; peroneal F Wave responses are bilaterally absent. 6) Repetitive stimulations are normal, as noted above. 7) Sensory responses: a. Right median palmar and median digital delayed with small amplitudes b. Right ulnar normal latency with small amplitude c. Superficial peroneal bilaerally normal latencies with small amplitudes 8) Intramuscular recordings of the right arm, bilateral diaphragm, bilateral thoracic paraspinous (level T3-T11) and tongue (genioglossus) muscles are normal, without denervation or myopathy. 9) Intramuscular recordings of the bilateral legs suggest decreased motor unit recruitment as noted above The study suggests right carpal tunnel syndrome, bilateral peroneal nerve compromise and moderate axonal sensory neuropathy (nutritional?).The study does not electrodiagnostically suggest myopathy, motor neuron disease or compromise of the neuromuscular junction. Klaus To M.D. Narrative Performed At NERVE CONDUCTION AND ELECTROMYOGRAPHY REPORT Neurological [place], [facility]; [place], [place] [address]; Name: Feliciano Polo Date of Procedure: June 17, 2018Location: Sex: Male Date of :47 Referring Physician: Cathy Alfaro M.D. FAX: Patient is 5 11 ; 184 lbs.; RA 31.3 C; RL 28.5 C; LL 29.0 C Nerve Conduction(Latencies in msec, Amplitudes uV, Distance cm, Velocity M/Sec) Right Motor Nerves Dist. Lat. Prox lat. D. amp. P. Amp.Dist. Velocity Right Median4.89.58.6 7.622.0 46.3 Right Ulnar (below elb) 3.66.65.8 5.312.0 40.0 Right Peroneal EDB absentabsent Right Tibial5.015.31.8 1.338.0 36.7 Right Phrenic8.30.6 Right Median F Wave 31.7 Right Ulnar F Wave 36.4 Right Peroneal F Wave absent Right Tibial F Wave 58.5 Right Sensory Nerves Dist. Lat. Prox lat. Dist. amp. Prox Amp. Distance Velocity Right Median Palmar 2.6 21.0 8.0 Right Median Digital 3.6 5.7 13.0 Right Ulnar2.8 6.3 11.0 Right Sural3.7 5.3 14.0 Left Motor Nerves Dist. Lat. Prox lat. D. amp. P. Amp.Dist. Velocity Left Peroneal EDB 6.1nkmnei2.2 absent Left Tibial4.515.03.4 2.939.3 37.4 Left Peroneal F Wave absent Left Tibial F Wave 58.8 Left Sensory Nerves Dist. Lat. Prox lat. Dist. amp. Prox Amp. Distance Velocity Left Sural3.5 6.3 14.0 Electromyography (Motor Unit in mV; H=High; L=Low; P=Polyphasic; NS=Non-specific) Right ArmFibs. Pos. Waves Fasc. PolyphasiaMotor Units Recruitment Deltoid wnl wnlwnl wnlwnlwnl Biceps wnl wnlwnl wnlwnlwnl Triceps wnl wnlwnl wnlwnlwnl Brachioradialis wnl wnlwnl wnlwnlwnl Ext. Dig. Comm. wnl wnlwnl wnlwnlwnl lst D. Interosseous wnl wnlwnl wnlwnlwnl Right LegFibs. Pos. Waves Fasc. PolyphasiaMotor Units Recruitment Vas. Medialiswnl wnlwnl wnlwnlwnl Ant. Tibialiswnl wnlwnl wnlwnl-1 Peroneus Longus wnl wnlwnl wnlwnl-1 Gastronemiuswnl wnlwnl wnlwnlwnl Ext. Dig. Brevis wnl wnlwnl wnlwnl-1 DiaphragmFibs. Pos. Waves Fasc. PolyphasiaMotor Units RecruitmentRight wnl wnlwnl wnlwnlwnl Left wnl wnlwnl wnlwnlwnl Left LegFibs. Pos. Waves Fasc. PolyphasiaMotor Units Recruitment Vas. Medialiswnl wnlwnl wnlwnlwnl Ant. Tibialiswnl wnlwnl wnlwnl-1 Peroneus Longus wnl wnlwnl wnlwnl-1 Gastronemiuswnl wnlwnl wnlwnlwnl Ext. Dig. Brevis wnl wnlwnl wnlwnl-1 Thoracic Paraspinous (T3-T11 level): Right: wnl wnlwnl wnlwnlwnl Left: wnl wnlwnl wnlwnlwnl Genioglossus (tongue): Right: wnl wnlwnl wnlwnlwnl Repetitive stimulations: Repetitive stimulations at 3 Hz. of the right ulnar nerve (recording from ADM), before and after exercise, are normal, without significant increment or decrement in the response: At rest: 1.2% decrement; immediately post-exercise: 0.0% decrement; one minute post-exercise: 3.7% decrement; two minutes post-exercise: 1.2% increment; three minutes post-exercise: 1.2% decrement. Repetitive stimulations at 3 Hz. of the right XI nerve (recording from trapezius), before and after exercise, are normal, without significant increment or decrement in the response: At rest: 4.4% increment; immediately post-exercise: 2.3% increment; one minute post-exercise: 2.3% decrement; two minutes post-exercise: 2.5% decrement; three minutes post-exercise: 2.6% decrement. Spirometry, MIPS/MEPS (06/17/2018 9:04 AM SERVICE LINE BUS CLEANER) FEV1 Pre 0.78 2.28 - 3.78 L [facility] FEV1/FVC % Pre 83.98 63.72 - 83.08 % [facility] FVC Pre 0.93 3.25 - 5.03 L [facility] PEF Pre 1.50 5.71 - 10.14 L/s [facility] FEF 25-75% Pre 0.59 0.76 - 3.81 L/s [facility] FEV1 Predicted 3.03 [facility] FEV1 LLN 2.28 [facility] FEV1 % Pre of Predicted 25.9 % [facility] FVC Predicted 4.14 [facility] FVC LLN 3.25 [facility] FVC % Pre of Predicted 22.5 % [facility] FEV1/FVC % Predicted 73 [facility] FEV1/FVC % LLN 64 [facility] FEV1/FVC % Pre of Predicted 114.4 % [facility] FEF 25-75% Predicted 2.29 [facility] FEF 25-75% LLN 0.76 [facility] FEF 25-75% % Pre of Predicted 25.6 % [facility] PEF Predicted 7.92 [facility] PEF LLN 5.71 [facility] PEF % Pre of Predicted 18.9 % [facility] MIP Predicted 81.41 [facility] MIP LLN 27.67 [facility] MEP Predicted 131.37 [facility] MEP LLN 83.88 [facility] MVV Predicted 117 [facility] MVV LLN 100 [facility] Narrative Performed At Performing Organization Address City/[facility] Phone Number [facility] [address] [place] [phone] Syphilis treponemal IgG (06/17/2018 7:27 AM SERVICE LINE BUS CLEANER) Syphilis treponemal IgG Non-reactiveComment: Non-reactive [facility] Non-reactive: No HOSPITAL serological evidence of Syphilis infection Specimen Serum Performing Organization Address City/[facility] Centercode Phone Number [facility] DEPARTMENT OF PATHOLOGY AND [address] [place] [address] GENOMIC MEDICINE [address] [address] Estimated GFR (06/17/2018 7:27 AM SERVICE LINE BUS CLEANER) Estimated GFR 77 mL/min/1.73 m2 [facility] Comment: HOSPITAL CatergoryUnitsInterpretation G1 >=90 Normal or high G2 60-89Mildly decreased L6q09-85Skjqmx to moderately decreased A2a10-76Tpcgatqaep to severely decreased G4 15-29Severely decreased G5 <15Kidney failure The eGFR was calculated using the Chronic Kidney Disease Epidemiology Collaboration (CKD-EPI) equation. Interpretation is based on recommendations of the National Kidney Foundation-Kidney Disease Outcomes Quality Initiative (NKF-KDOQI) published in 2014. Specimen Plasma specimen Performing Organization Address City/[facility]/Zipcode Phone Number [facility] DEPARTMENT OF PATHOLOGY AND [address] [place] [address] [address] IgG synthesis rate study (06/17/2018 7:27 AM SERVICE LINE BUS CLEANER)Only the most recent of2 resultswithin the time period is included. IgG albumin ratio, CSF 0.10 0.00 - 0.23 [facility] IgG index, CSF 0.38 0.01 - 0.63 [facility] IgG synthetic rate -1.88 -9.90 - 3.30 mg/day [facility] Q-albumin ratio, CSF 5.04 2.50 - 9.00 [facility] IgG, CSF 1.85 1.00 - 3.00 mg/dL [facility] Albumin, CSF 18.65 10.00 - 30.00 mg/dL [facility] IgG 969 700 - 1,600 mg/dL [facility] Albumin, S 3,700.0 3,640.0 - 5,304.0 mg/dL [facility] Specimen Serum Performing Organization Address [facility] Centercode Phone Number [facility] DEPARTMENT OF PATHOLOGY AND [address] [address] HTLV I/II Ab with reflex to confirmation (06/17/2018 7:27 AM SERVICE LINE BUS CLEANER) HTLV I/II Ab Negative Negative [facility] Comment: Based on the non-reactive anti-HTLV LISA screen, the HTLV Western Blot is not indicated and therefore not performed. INTERPRETIVE INFORMATION:HTLV I/II Antibodies w/Reflex to Confirm This assay should not be used for blood donor screening, associated re-entry protocols, or for screening Human Cell, Tissues and Cellular and Tissue-Based Products (HCT/P). Performed by [facility], [address] [place], [place] [id number] [email or web address], Hood Mckeon MD - Lab. Director Specimen Serum Performing Organization Address [facility]/Zipcode Phone Number [facility] [employer] LABORATORY [address] [place] [address] [facility] [address] [place] [address] GM1 Ab panel (06/17/2018 7:27 AM SERVICE LINE BUS CLEANER) GM1 IgG 8 0 - 50 IV [facility] GM1 IgM 2 0 - 50 IV [facility] Comment: INTERPRETIVE INFORMATION: Ganglioside (GM1) Antibodies, IgG and IgM 29 IV or less: Negative 30-50 IV: Equivocal 51-100 IV: Positive 101 IV or greater: Strong positive Ganglioside antibodies are associated with diverse peripheral neuropathies. Elevated antibody levels to ganglioside-monosialic acid (GM1) are associated with motor or sensorimotor neuropathies, particularly multifocal motor neuropathy. Anti-GM1 may occur as IgM (polyclonal or monoclonal) or IgG antibodies. These antibodies may also be found in patients with diverse connective tissue diseases as well as normal individuals. These tests by themselves are not diagnostic and should be used in conjunction with other clinical parameters to confirm disease. Test developed and characteristics determined by [facility]. See Compliance Statement D: [employer]/ Performed by [facility], [address] [place] [address] [email or web address], Hood Mckeon MD - Lab. Director Asialo GM1 IgG see noteComment: not performed as part of [facility] GM1 panel Asialo GM1 IgM see noteComment: not performed as part of [facility] GM1 panel Specimen Serum Performing Organization Address City/State/Zipcode Phone Number [facility] [address] [place] [address] [facility] [address] [place] [address] Acetylcholine receptor blocking Ab (06/17/2018 7:27 AM SERVICE LINE BUS CLEANER) Acetylcholine receptor 29 (H) 0 - 26 % [facility] blocking Ab Comment: Repeated and Verified INTERPRETIVE INFORMATION: Acetylcholine Blocking Ab Negative ............0-26 percent blocking Indeterminate ....... 27-41 percent blocking Positive ............ 42 percent or greater blocking Approximately 85-90 percent of patients with myasthenia gravis (MG) express antibodies to the acetylcholine receptor (AChR), which can be divided into binding, blocking, and modulating antibodies. Binding antibody can activate complement and lead to loss of AChR. Blocking antibody may impair binding of acetylcholine to the receptor, leading to poor muscle contraction. Modulating antibody causes receptor endocytosis resulting in loss of AChR expression, which correlates most closely with clinical severity of disease. Approximately 10-15 percent of individuals with confirmed myasthenia gravis have no measurable binding, blocking, or modulating antibodies. Test developed and characteristics determined by [employer]. See Compliance Statement B: [employer]/CS Performed by [facility], [address] [place] [id number] [email or web address], Hood Mckeon MD - Lab. Director Specimen Serum Performing Organization Address [facility] Centercode Phone Number [facility] LABORATORY [address] [place] [address] [facility] [address] [place] [phone] Acetylcholine receptor modulating Ab (06/17/2018 7:27 AM SERVICE LINE BUS CLEANER) Acetylcholine receptor 0 <=45 % [facility] modulating Ab Comment: INTERPRETIVE INFORMATION: Acetylcholine Modulating Ab Negative ..........0-45 percent modulating Positive ..........46 percent or greater modulating Approximately 85-90 percent of patients with myasthenia gravis (MG) express antibodies to the acetylcholine receptor (AChR), which can be divided into binding, blocking, and modulating antibodies. Binding antibody can activate complement and lead to loss of AChR. Blocking antibody may impair binding of acetylcholine to the receptor, leading to poor muscle contraction. Modulating antibody causes receptor endocytosis resulting in loss of AChR expression, which correlates most closely with clinical severity of disease. Approximately 10-15 percent of individuals with confirmed myasthenia gravis have no measurable binding, blocking, or modulating antibodies. Test developed and characteristics determined by [employer]. See Compliance Statement B: [employer]/CS Performed by [facility], [address] [place] [address] [email or web address], Hood Mckeon MD - Lab. Director Specimen Serum Performing Organization Address [facility] Centercode Phone Number [facility] LABORATORY [address] [place] [address] [facility] [address] [place] [address] Acetylcholine receptor binding Ab (06/17/2018 7:27 AM SERVICE LINE BUS CLEANER) Acetylcholine receptor 0.0 0.0 - 0.4 nmol/L [facility] binding Ab Comment: INTERPRETIVE INFORMATION: Acetylcholine Binding Ab Negative ....... 0.0 - 0.4 nmol/L Positive ....... 0.5 nmol/L or greater Approximately 85-90 percent of patients with myasthenia gravis (MG) express antibodies to the acetylcholine receptor (AChR), which can be divided into binding, blocking, and modulating antibodies. Binding antibody can activate complement and lead to loss of AChR. Blocking antibody may impair binding of acetylcholine to the receptor, leading to poor muscle contraction. Modulating antibody causes receptor endocytosis resulting in loss of AChR expression, which correlates most closely with clinical severity of disease. Approximately 10-15 percent of individuals with confirmed myasthenia gravis have no measurable binding, blocking, or modulating antibodies. Test developed and characteristics determined by [facility]. See Compliance Statement B: [employer]/ Performed by [facility], [address] [place] [address] [email or web address], Hood Mckeon MD - Lab. Director Specimen Serum Performing Organization Address [facility] Centercode Phone Number [facility] [address] REF LAB [address] [place] [address] B. burgdorferi Abs total, serum (06/17/2018 7:27 AM SERVICE LINE BUS CLEANER) B. burgdorferi antibodies 0.26 0.00 - 1.20 [facility] Comment: INTERPRETIVE INFORMATION: Borrelia Burgdorferi Abs,Total by LISA 0.99 CASEY or Less: ...... Negative: Antibody to B. burgdorferi not detected. 1.00 - 1.20 CASEY......... Equivocal: Repeat testing in 10-14 days may be helpful. 1.21 CASEY or Greater: ... Positive: Probable presence of antibody to B. burgdorferi detected. Performed by [facility], [address] [place] [address] [email or web address], Hood Mckeon MD - Lab. Director Specimen Serum Performing Organization Address [facility] Centercopa Phone Number [facility] [address] [place] [address] [facility] [address] [place] [address] Striated muscle Ab, IgG with reflex to titer (06/17/2018 7:27 AM SERVICE LINE BUS CLEANER) Striated muscle Ab, IgG <1:40 <1:40 [facility] screen Comment: Striated Muscle Antibodies, IgG are not detected. No further testing will be performed. INTERPRETIVE DATA:Striated Muscle Antibodies, IgG Screen In the presence of acetylcholine receptor (AChR) antibody, striated muscle antibodies, which bind in a cross-striational pattern to skeletal and heart muscle tissue sections, are associated with late-onset myasthenia gravis (MG). Striated muscle antibodies recognize epitopes on three major muscle proteins, including: titin, ryanodine receptor (RyR) and Kv1.4 (an alpha subunit of voltage-gated potassium channel [VGKC]). Isolated cases of striated muscle antibodies may be seen in patients with certain autoimmune diseases, rheumatic fever, myocardial infarction, and following some cardiotomy procedures. Test developed and characteristics determined by [facility]. See Compliance Statement A: [employer]/ Performed by [facility], [address] [place] [address] [email or web address], Hood Mckeon MD - Lab. Director Striated muscle Ab, IgG SEE NOTE [facility] titer Specimen Serum Performing Organization Address City/State/Zipcode Phone Number [facility] [address] [place] [address] [facility] [employer] RE[facility] LAB [address] [place] [address] Vitamin D 25 hydroxy level (06/17/2018 7:27 AM SERVICE LINE BUS CLEANER) Vitamin D, 25-hydroxy 44.6 30.0 - 150.0 [facility] Comment: ng/mL HOSPITAL This assay reports the sum of 25-hydroxy vitamin D3 and 25-hydroxy vitamin D2. Reference range: 0-17 years: Deficiency: less than 20ng/mL Optimum level: greater than or equal to 20 ng/mL. 18 years and older: Deficiency: less than 20ng/mL Insufficiency: 20-29 ng/mL Optimum Level: 30-80 ng/mL The assay reportable range is 3.4155.9 ng/mL. Levels higher than 150 ng/mL may be associated with toxicity. If toxicity is clinically suspected and the reported result is >155.9 ng/mL,contact lab for alternative methods to obtain a definitivelevel. If separate quantitation of 25-hydroxy vitamin D3 and 25-hydroxy vitamin D2 is needed, please contact lab for alternative methods. Specimen Blood Performing Organization Address City/[facility]/Zipcode Phone Number [facility] DEPARTMENT OF PATHOLOGY AND [address] [place] [phone] [place] [phone] Partial thromboplastin time, activated (06/17/2018 7:27 AM SERVICE LINE BUS CLEANER) PTT 33.4 23.0 - 36.0 sec [facility] Comment: PTT therapeutic range for unfractionated heparin is 61.0-112.0 seconds which corresponds to Anti-Xa 0.3-0.7 U/ml. Specimen Blood Performing Organization Address City/[facility]/Zipcode Phone Number [facility] DEPARTMENT OF PATHOLOGY AND [address] [place] [phone] [place] [phone] Sedimentation rate (06/17/2018 7:27 AM SERVICE LINE BUS CLEANER) Sedimentation rate 8 0 - 10 mm/hr [facility] Specimen Blood Performing Organization Address City/[facility] Phone Number [facility] DEPARTMENT OF PATHOLOGY AND [address] [place] [phone] [place] [phone] Prothrombin time with INR (06/17/2018 7:27 AM SERVICE LINE BUS CLEANER) Prothrombin time 13.1 11.5 - 14.5 sec [facility] INR 1.0 [facility] Comment: HOSPITAL The International Normalized Ratio (INR) is a therapeutic monitoring tool for patients who are stable on oral anticoagulant therapy. An INR of 2.0-3.0 is suggested for deep vein thrombosis/pulmonary embolism. Specimen Blood Performing Organization Address City/[facility]/Zipcode Phone Number [facility] DEPARTMENT OF PATHOLOGY AND [address] [place] [phone] [place] [phone] CBC with platelet and differential (06/17/2018 7:27 AM SERVICE LINE BUS CLEANER) WBC 6.15 4.50 - 11.00 k/uL [facility] RBC 5.34 4.40 - 6.00 m/uL [facility] HGB 14.9 14.0 - 18.0 g/dL [facility] HCT 48.7 41.0 - 51.0 % [facility] MCV 91.2 82.0 - 100.0 fL [facility] MCH 27.9 27.0 - 34.0 pg [facility] MCHC 30.6 (L) 31.0 - 37.0 g/dL [facility] RDW - SD 48.6 37.0 - 55.0 fL [facility] MPV 11.0 8.8 - 13.2 fL [facility] Platelet count 194 150 - 400 k/uL [facility] Nucleated RBC 0.00 /100 WBC [facility] Neutrophils 70.2 (H) 39.0 - 69.0 % [facility] Lymphocytes 14.0 (L) 25.0 - 45.0 % [facility] Monocytes 13.7 (H) 0.0 - 10.0 % [facility] Eosinophils 1.5 0.0 - 5.0 % [facility] Basophils 0.3 0.0 - 1.0 % [facility] Immature granulocytes 0.3Comment: "Immature 0.0 - 1.0 % [facility]" [facility] (promyelocytes, myelocytes, metamyelocytes) Specimen Blood Performing Organization Address City/[facility] Phone Number [facility] DEPARTMENT OF PATHOLOGY AND [address] [place] [phone] Rheumatoid factor (06/17/2018 7:27 AM [employer]) Rheumatoid factor <10 0 - 13 IU/mL [facility] Specimen Plasma specimen Performing Organization Address City/[facility]ercode Phone Number [facility] DEPARTMENT OF PATHOLOGY AND [address] [place] [phone] C-reactive protein (06/17/2018 7:27 AM [employer]) CRP 2.71 (H) 0.00 - 0.50 mg/dL [facility] Specimen Plasma specimen Performing Organization Address City/[facility] Centercode Phone Number [facility] DEPARTMENT OF PATHOLOGY AND [address] [place] [phone] [place] [phone] VLADISLAV (06/17/2018 7:27 AM [employer]) VLADISLAV screen Negative Negative [facility] Specimen Blood Performing Organization Address City/[facility]ercopa Phone Number [facility] DEPARTMENT OF PATHOLOGY AND [address] [place] [phone] [place] [address] [phone] T3 (06/17/2018 7:27 AM [employer]) T3 106 80 - 200 ng/dL [facility] Specimen Plasma specimen Performing Organization Address [facility] Phone Number [facility] DEPARTMENT OF PATHOLOGY AND [address] [place] [phone] [place] [phone] Thyroid stimulating hormone (06/17/2018 7:27 AM [employer]) TSH 6.97 (H) 0.27 - 4.20 uIU/mL [facility] Specimen Plasma specimen Performing Organization Address [facility] Phone Number [facility] DEPARTMENT OF PATHOLOGY AND [address] [place] [phone] [place] [address] [phone] T4, free (06/17/2018 7:27 AM [employer]) T4, free 1.2 0.9 - 1.7 ng/dL [facility] Specimen Plasma specimen Performing Organization Address [facility] Phone Number [facility] DEPARTMENT OF PATHOLOGY AND [address] [place] [phone] Serum electrophoresis (06/17/2018 7:27 AM [employer]) Protein 7.1 6.3 - 8.3 g/dL [facility] Comment: HOSPITAL [place] 4.6-7.0 g/dL 1 week 4.4-7.6 g/dL 7 months-1year5.1-7.3 g/dL 1-2 years5.6-7.5 g/dL >3 years6.0-8.0 g/dL 18-150 6.3-8.3 g/dL SPE albumin 4.54 4.00 - 5.30 g/dL [facility] SPE alpha 1 0.20 0.10 - 0.25 g/dL [facility] SPE alpha 2 0.77 0.58 - 0.84 g/dL [facility] SPE beta 0.86 0.50 - 1.10 g/dL [facility] SPE gamma 0.73 0.60 - 1.30 g/dL [facility] SPE extended interpretation See CommentComment: [facility] A normal serum HOSPITAL protein study. SPE interpretation See CommentComment: [facility] WINSOME Wing MD; Eunice Morales, PhD; Pari Sevilla MD Specimen Serum Performing Organization Address City/[facility]ercode Phone Number [facility] DEPARTMENT OF PATHOLOGY AND [address] [place] [phone] Parathyroid hormone (06/17/2018 7:27 AM SERV[employer]) PTH 40 15 - 65 pg/mL [facility] Specimen Blood Performing Organization Address City/[facility] Phone Number [facility] DEPARTMENT OF PATHOLOGY AND [address] [place] [phone] Hemoglobin A1c (06/17/2018 7:27 AM SERV[employer]) Hemoglobin A1C 5.5 4.0 - 5.6 % [facility] Comment: HbA1c cutoffs for diagnosing diabetes: 4.0% - 5.6%=normal 5.7% - 6.4%=increased risk for diabetes (prediabetes) >=6.5%=diabetes Goals for glycemic control (ADA 2016) < 7.0%Target for non adults with diabetes. More or less stringent targets may be appropriate for individual patients. <7.5% Target for Children and adolescents with type 1 diabetes. Specimen Blood Performing Organization Address City/[facility]ercode Phone Number [facility] DEPARTMENT OF PATHOLOGY AND [address] [place] [phone] Vitamin B12 level (06/17/2018 7:27 AM SERV[employer]) Vitamin B12 1,023 (H) 211 - 946 pg/mL [facility] Comment: Significant overlap exists between normal and deficiency states. However, most patients with deficiencies will have Serum B12 <200 pg/mL. Specimen Serum Performing Organization Address City/[facility]ercode Phone Number [facility] DEPARTMENT OF PATHOLOGY AND [address] [place], [place] [phone] Creatine kinase, total (CPK) (06/17/2018 7:27 AM SERV[employer]) Creatine kinase 172 39 - 308 U/L [facility] Specimen Plasma specimen Performing Organization Address City/[facility] Phone Number [facility] DEPARTMENT OF PATHOLOGY AND [address] [place] [phone] [address] Hepatic function panel (06/17/2018 7:27 AM SERV[employer]) Albumin 3.6 3.5 - 5.0 g/dL [facility] Total bilirubin 0.8 0.0 - 1.2 mg/dL [facility] Bilirubin direct <0.2 0.0 - 0.3 mg/dL [facility] Alkaline phosphatase 112 40 - 129 U/L [facility] Protein 7.8 6.3 - 8.3 g/dL [facility] Comment: 4.6-7.0 g/dL 1 week 4.4-7.6 g/dL 7 months-1year5.1-7.3 g/dL 1-2 years5.6-7.5 g/dL >3 years6.0-8.0 g/dL 18-150 6.3-8.3 g/dL ALT 16 5 - 50 U/L [facility] AST 29 10 - 50 U/L [facility] Specimen Plasma specimen Performing Organization Address [facility] Phone Number [facility] DEPARTMENT OF PATHOLOGY AND [address] [place] [phone] [address] Basic metabolic panel (06/17/2018 7:27 AM SERVICE [employer]) Sodium 138 135 - 148 mEq/L [facility] Potassium 4.7 3.5 - 5.0 mEq/L [facility] Chloride 93 (L) 98 - 112 mEq/L [facility] CO2 31 24 - 31 mEq/L [facility] Anion gap 14@ANIO 7 - 15 mEq/L [facility] BUN 30 (H) 8 - 23 mg/dL [facility] Creatinine 0.98 0.70 - 1.20 mg/dL [facility] Glucose 76 65 - 99 mg/dL [facility] Calcium 9.7 8.8 - 10.2 mg/dL [facility] Specimen Plasma specimen Performing Organization Address City/State/Zipcode Phone Number [facility] DEPARTMENT OF PATHOLOGY AND [address] [place] [address] GENOMIC MEDICINE [facility] [address] [place] [address] CT Chest External Study (05/14/2018 7:08 PM CDT)Only the most recent of2 resultswithin the time period is included. Narrative Performed At This exam was not acquired at a Orthodox facility and has not been [facility] interpreted by a Orthodox Provider.The exam was imported into our imaging system for comparisons purposes. Performing Organization Address City/State/Zipcode Phone Number [facility] [address] [place] [phone] [address] Head External Study (10/20/2017 10:41 AM CDT) Narrative Performed At This exam was not acquired at a Orthodox facility and has not been [facility] interpreted by a Orthodox Provider.The exam was imported into our imaging system for comparisons purposes. Performing Organization Address City/[facility]ercode Phone Number [facility] [address] [place] [address] after 10/08/2017 Insurance Payer Benefit Plan / Group Subscriber ID Type Phone Address MEDICARE MEDICARE PART A AND B xxxxxxxxxxx Medicare [place], [place] [employer] xxxxxx-xx Commercial [phone] [address] ([place]) [place] [id number] Advance Directives Patient has advance care planning documents on file. For more information, please contact:[address] [address]
--- OUTSIDE RECORDS SUMMARY | 2018-10-09 22:28 | XMS REPORT | Clinical Summary ---
:1945 Author Organization [facility] Address [address] [place] [address] Care Team Providers Name Role Phone Ivonne Chaudhari MD Primary Care Provider Allergies No Known Allergies Medications Medication Sig Dispensed Refills Start Date End Date Status esomeprazole (NEXIUM) Take 20 mg by 0 Active 20 MG capsule mouth daily. aspirin 81 MG EC Take 1 tablet 100 tablet 3 08/09/2017 Active tablet (81 mg total) by mouth daily. lisinopril Take 1 tablet 90 tablet 2 08/09/2017 Active (PRINIVIL,ZESTRIL) 5 (5 mg total) by MG tablet mouth daily. rosuvastatin Take 1 tablet 30 tablet 0 08/14/2017 08/14/2018 (CRESTOR) 40 MG (40 mg total) tablet by mouth daily. Active Problems Problem Noted Date Hypotension 09/01/2015 SOB (shortness of breath) 07/05/2015 Syncope and collapse 01/05/2015 HTN (hypertension) 01/05/2015 Vision changes 07/15/2014 Internal carotid artery occlusion, right 07/15/2014 Hypertension 07/02/2014 CAD (coronary artery disease) 06/01/2014 HLD (hyperlipidemia) 06/01/2014 Dizziness 06/01/2014 Family History Medical History Relation Name Comments Aortic aneurysm Father Cancer Relation Name Status Comments Brother Alive Father Mother Sister Alive Sister Alive Son Alive Son Alive Son Alive Social History Tobacco Use Types Packs/Day Years Used Date Never Smoker Smokeless Tobacco: Never Used Alcohol Use Drinks/Week oz/Week Comments No Sex Assigned at Date Recorded Not on file Job Start Date Occupation Industry Not on file Not on file Not on file Travel History Travel Start Travel End No recent travel history available. Last Filed Vital Signs Not on file Plan of Treatment Not on file Results Not on fileafter 10/08/2017 Insurance Payer Benefit Plan / Group Subscriber ID Type Phone Address MEDICARE MEDICARE A B xxxxxxxxxxx Medicare MCR SUPPLEMENT/[employer] xxxxxxxx [facility] [phone] [address] (Home) [phone] [place] (Work) [id number] Advance Directives For more information, please contact:[address] [phone] Code Status Date Activated Date Inactivated Comments Full Code 07/15/2014 5:25 PM 07/17/2014 3:49 PM This code status was determined by: Patient
[2018-10-09 23:13] LABS: Absolute Lymphocytes (CBC) 0.5 K/uL (0.7-4.9); Absolute Monocytes 1.1 K/uL (0.1-1.3); Absolute Neutrophil 10.3 K/uL (1.8-8.0); Basophils % 0.2 % (0-1.3); Hematocrit 55.3 % (39.6-49.0); Lymphocytes % 4.4 % (15.3-44.8); MPV 9.9 fL (7.6-11.3); Monocytes % 9.2 % (3.3-12.3); RBC Red Blood Cell Count 6.12 M/uL (4.33-5.43)
--- NOTE | 2018-10-09 23:55 | ER ---
Nurse's Notes [facility] Name: Feliciano Polo Age: 73 yrs Sex: Male : 1945 Arrival Date: 10/09/2018 Time: 22:27 Bed 3 Private MD: Diagnosis: Nontraumatic intracerebral hemorrhage Presentation: 10/09 22:33 Presenting complaint: EMS states: "This pt was seen at normal at 1630 today. we found jd3 him on the floor with a hematoma to his head. He has a tracheostomy that the tube was found next to him on the floor. We got a GCS of 3. we started GILMAR 20 G IVs in the forearms. we don't have any history on the pt, but the family is on the way.". Care prior to arrival: IV initiated. 20 GA, in the left forearm. Care prior to arrival: IV initiated. 20 GA, in the right forearm. Mechanism of Injury: Fall from standing position. Trauma event details: Injury occurred in the [facility], Injury occurred: at home. Injury occurred: October 09, 2018. 22:33 Acuity: DONALD 1 jd3 22:33 Method Of Arrival: EMS: [facility] jd3 23:23 Transition of care: patient was not received from another setting of care. Onset of lp1 symptoms is unknown. Risk Assessment: Do you want to hurt yourself or someone else? Patient reports no desire to harm self or others. Initial Sepsis Screen: Does the patient meet any 2 criteria? No. Patient's initial sepsis screen is negative. Does the patient have a suspected source of infection? No. Patient's initial sepsis screen is negative. Trauma Activation: Physician: ED Physician; Name: Dr. Barrow; Notified At: 22:23; Arrived At: 22:23 Physician: General Surgeon; Name: ; Notified At: 22:23; Arrived At: Physician: Radiology; Name: Rhonda Cox Victoria, Dillion; Notified At: 22:23; Arrived At: 22:23 Physician: Respiratory; Name: Tru; Notified At: 22:23; Arrived At: 22:23 Physician: Lab; Name: ; Notified At: 22:23; Arrived At: Historical: - Allergies: 10/10 01:02 No Known Allergies; lp1 - Home Meds: 10/09 22:58 Aspirin Childrens 81 mg Oral chew 1 tab once daily [Active]; Crestor Oral [Active]; jd3 Eliquis Oral [Active]; escitalopram oxalate 10 mg Oral tab [Active]; gabapentin Oral [Active]; lisinopril Oral [Active]; Nexium Oral [Active]; - PMHx: 22:58 Neck Cancer; High Cholesterol; jd3 - PSHx: 22:58 trache; jd3 - Immunization history: Last tetanus immunization: unknown. - Social history:: Smoking status: unknown. - Ebola Screening: : Patient negative for fever greater than or equal to 101.5 degrees Fahrenheit, and additional compatible Ebola Virus Disease symptoms. Screenin:20 Abuse screen: Denies threats or abuse. Denies injuries from another. Nutritional lp1 screening: PEG tube in place. Tuberculosis screening: No symptoms or risk factors identified. Fall Risk Total Quiñones Fall Scale indicates High Risk Score (45 or more points). Fall prevention measures have been instituted. Side Rails Up X 2 Placed Close to Nursing Station. Primary Survey: 23:00 NO uncontrolled hemorrhage observed. A: The patient is unresponsive. Airway: maintained lp1 via tracheostomy Oxygen supplied via ventilator. Breathing/Chest: Respiratory pattern: no respiratory pattern noted, Chest inspection: symmetrical rise and fall of the chest. Circulation: Pulses: palpable right radial artery and left radial artery. Skin temperature: dry, cool. Disability Unconscious. Exposure/Environment: All clothing and personal items were removed. Forensic evidence collection is not deemed to be indicated at this time. Items placed in patient belonging bag. Obvious injury(ies) are noted at this time: hematoma to right side of head, hematoma to right eye. 10/10 00:00 Reassessment Breathing/Chest Respiratory pattern Other Vented through tracheostomy. lp1 Secondary Survey: 00:00 HEENT: Head Other Hematoma to right side of head, hematoma to right eye. lp1 Gastrointestinal: Abdomen is flat, Other PEG tube in place. : No deficits noted. Musculoskeletal: No deficits noted. Assessment: 10/09 22:45 General: Appears slender, Behavior is unresponsive. Pain: Unable to use pain scale. lp1 Patient is unresponsive. Neuro: Left pupil dilated. EENT: tracheostomy, no trach in place. 22:45 Cardiovascular: Capillary refill is sluggish in bilateral fingers toes. Respiratory: lp1 Airway via trache. GI: PEG tube in place. : No deficits noted. Derm: Skin is thin, Skin is dry, Skin is pale, Skin temperature is cool Bruising that is Large hematoma to right side of head, hematoma to right eye. 23:05 Reassessment: Angie césargger applied to patient. lp1 23:30 Reassessment: Family at bedside, Son with POA. lp1 10/10 00:30 Reassessment: Family at bedside; Continuing to monitor patient. lp1 02:15 Reassessment: Family aware of pending transfer. Neuro: Level of Consciousness is lp1 unresponsive, Pupils are dilated. Respiratory: Vent in place to tracheostomy. : Urine is blood tinged. 03:30 Reassessment: Report called to Mary Hodges RN at [facility] for lp1 patient going to [address] [place] [address] 17. 04:00 General: Behavior is unresponsive. Neuro: Level of Consciousness is unresponsive, lp1 Pupils are dilated. Cardiovascular: Patient's skin is warm and dry. Rhythm is sinus tachycardia. Respiratory: tube in place for ventilation. Derm: Skin is dry, Skin is pale. 04:32 Reassessment: EMS at bedside for transfer; family aware of transfer. lp1 Vital Signs: 10/09 22:45 BP 138 / 98; Pulse 52; lp1 22:59 BP 149 / 111; Pulse 48; Resp 19 A; Pulse Ox 100% on ETT ambu; Weight 77.11 kg; Height 6 jd3 ft. 2 in. (187.96 cm); Pain 0/10; 23:00 BP 140 / 93; Pulse 44; Resp 19; Pulse Ox 100% on 53% FiO2 ETT vent; lp1 23:08 Temp 87.9(R); lp1 23:20 BP 106 / 82; Pulse 42; Resp 14; Pulse Ox 99% on ETT vent; lp1 23:40 BP 102 / 80; Pulse 42; Resp 14; Pulse Ox 100% on 53% FiO2 ETT vent; lp1 10/10 00:00 BP 103 / 80; Pulse 41; Resp 14; Pulse Ox 100% on 53% FiO2 ETT vent; lp1 00:20 BP 114 / 86; Pulse 43; Resp 14; Pulse Ox 100% on 53% FiO2 ETT vent; lp1 00:40 BP 119 / 91; Pulse 43; Resp 14; Pulse Ox 100% on 53% FiO2 ETT vent; lp1 01:00 BP 134 / 96; Pulse 47; Resp 14; Pulse Ox 100% on 53% FiO2 ETT vent; lp1 01:20 BP 150 / 103; Pulse 51; Resp 14; Pulse Ox 100% on 53% FiO2 ETT vent; lp1 01:40 BP 163 / 110; Pulse 58; Resp 13; Pulse Ox 100% on 53% FiO2 ETT vent; lp1 02:00 BP 181 / 121; Pulse 74; Resp 14; Pulse Ox 99% on 53% FiO2 ETT vent; lp1 02:15 BP 153 / 100; Pulse 73; Resp 14; Temp 90.6(C); Pulse Ox 100% on 53% FiO2 ETT vent; lp1 02:30 BP 185 / 127; Pulse 79; Resp 14; Temp 92.6(C); Pulse Ox 99% on 53% FiO2 ETT vent; lp1 02:45 BP 135 / 97; Pulse 93; Resp 14; Pulse Ox 99% on 53% FiO2 ETT vent; lp1 03:00 BP 134 / 93; Pulse 108; Resp 16; Temp 93.1(C); Pulse Ox 98% on 53% FiO2 ETT vent; lp1 03:15 BP 128 / 88; Pulse 113; Resp 18; Temp 93.6(C); Pulse Ox 97% on 53% FiO2 ETT vent; lp1 03:30 BP 115 / 84; Pulse 127; Resp 14; Temp 93.9(C); Pulse Ox 97% on 50% FiO2 ETT vent; lp1 03:45 BP 104 / 83; Pulse 127; Resp 14; Temp 94.3(C); Pulse Ox 97% on 53% FiO2 ETT vent; lp1 04:00 BP 107 / 78; Pulse 130; Resp 14; Temp 94.8(C); Pulse Ox 97% on 53% FiO2 ETT vent; lp1 04:15 BP 104 / 77; Pulse 127; Resp 15; Temp 95.4(C); Pulse Ox 97% on 53% FiO2 ETT vent; lp1 04:30 BP 103 / 76; Pulse 121; Resp 16; Temp 95.7(C); Pulse Ox 97% on 53% FiO2 ETT vent; lp1 10/09 22:59 Body Mass Index 21.83 (77.11 kg, 187.96 cm) [facility] 10/09 23:00 Rate of 14, Tidal Volume of 500, O2 53% lp1 David Coma Score: 23:00 Eye Response: none(1). Verbal Response: none(1). Motor Response: none(1). Total: 3. lp1 23:37 Eye Response: none(1). Verbal Response: none(1). Motor Response: none(1). Total: 3. Trauma Score (Adult): 23:00 Eye Response: none(0); Verbal Response: none(0); Motor Response: none(0); Systolic BP: lp1 > 89 mm Hg(4); Respiratory Rate: 6 to 9 per min(2); Salem Score: 3; Trauma Score: 6 ED Course: 22:25 Maintain EMS IV. Dressing intact. Good blood return noted. Site clean \\T\\ dry. Gauge \\T\\ terrie 3 site: 20 G in right forearm.. Maintain EMS IV. Dressing intact. Good blood return noted. Site clean \\T\\ dry. Gauge \\T\\ site: 20 G in left forearm.. 22:26 Placed 7.5 ET tube in tracheostomy. jd3 22:26 O2 via ventilator. jd3 22:27 Patient arrived in ED. ds1 22:28 Ryan Barrow MD is Attending Physician. gs 22:31 Richard Cline, AKUA is Primary Nurse. jd3 22:47 Triage completed. jd3 22:55 XRAY Chest (1 view) In Process Unspecified. EDMS 23:00 Patient has correct armband on for positive identification. Bed in low position. Side lp1 rails up X2. panel monitor on. Pulse ox on. NIBP on. 23:05 Thermoregulation: Angie blanket applied. lp1 23:09 Arm band placed on. jd3 23:11 Lissett Kapoor, AKUA is Primary Nurse. lp1 23:12 initiated transfer with [facility] in [place] spoke with Nini waiting for bed mw2 assignment. 23:13 CT Traumagram (Head C Spine CAP W Con) In Process Unspecified. EDMS 10/10 00:50 called [facility] to check on the status of the transfer spoke with Katiuska she stated mw2 we are still awaiting bed assignment. 00:53 No provider procedures requiring assistance completed. lp1 01:24 called [facility] to check on the status of the transfer spoke with Nidia she stated we mw2 are still waiting for bed assignment. 02:00 Rios cath inserted, using sterile technique, 16 Fr., by pr, balloon inflated, to lp1 gravity drainage. 04:30 Patient transferred, IV remains in place. lp1 Administered Medications: 10/09 22:29 Drug: NS 0.9% 1000 ml {Note: administered by Rosalee FATIMA.} Route: IV; Rate: 125 ml/hr; jd3 Site: left forearm; 10/10 04:39 Follow up: IV Status: Infusion continued upon transfer lp1 02:35 Drug: Cardene 2.5 mg/hr Route: IV; Rate: calculated rate; Site: left forearm; jd3 04:39 Follow up: IV Status: Infusion continued upon transfer lp1 Output: 02:30 Urine: 1050ml (Rios); Total: 1050ml. lp1 Outcome: 10/09 23:54 ER care complete, transfer ordered by . 10/10 01:00 Patient's length of stay in the Emergency Department was greater than 2 hours. Pending lp1 transferPatient's length of stay extended due to 01:00 Instructed on the need for transfer, to family lp1 01:00 critical lp1 04:45 Patient left the ED. lp1 04:45 Transferred by ground EMS to [facility], Transfer form completed. lp1 X-rays sent w/ patient. Signatures: Dispatcher [employer] EDMO Katie Villavicencio Laura, RN RN lp1 Ryan Barrow MD MD gs Davies, Jonathon, RN RN jd3 [place], MyKena mw2 Corrections: (The following items were deleted from the chart) 10/09 23:19 23:12 General: Appears slender, Behavior is unresponsive. lp1 lp1 23:19 23:12 Pain: Unable to use pain scale. Patient is unresponsive. lp1 lp1 23:19 23:12 Neuro: Left pupil dilated. lp1 lp1 23: 23:12 EENT: tracheostomy . lp1 lp1 23: 23:16 Maintain EMS IV. Dressing intact. Good blood return noted. Site clean \\T\\ dry. jd3 Gauge \\T\\ site: 20 G in left forearm.. jd3 23: 23:16 Maintain EMS IV. Dressing intact. Good blood return noted. Site clean \\T\\ dry. jd3 Gauge \\T\\ site: 20 G in right forearm.. jd3 23:22 22:29 NS 0.9% 1000 ml IV at 125 ml/hr in left forearm jd3 jd3 10/10 04:36 10/09 23:00 BP 140 / 93; Pulse 44bpm; Resp 19bpm; Pulse Ox 100% ET / Ventilator; lp1 lp1 10/10 04:38 04:32 Reassessment: EMS at bedside for transfer; family aware of transfer lp1 lp1 05:11 05:11 Patient left the ED. lp1 lp1
--- NOTE | 2018-10-09 23:55 | EDPHYS ---
Physician Documentation [facility] Name: Feliciano Polo Age: 73 yrs Sex: Male : 1945 Arrival Date: 10/09/2018 Time: 22:27 Bed 3 Private MD: ED Physician Ryan Barrow HPI: 10/09 23:37 This 73 yrs old Male presents to ER via EMS with complaints of Fall Injury. gs 23:37 The patient presents with decreased responsiveness. Onset: The symptoms/episode gs began/occurred acutely, just prior to arrival. Possible causes: CVA or TIA. Unable to obtain HPI due to comatose state. Historical: - Allergies: 10/10 01:02 No Known Allergies; lp1 - Home Meds: 10/09 22:58 Aspirin Childrens 81 mg Oral chew 1 tab once daily [Active]; Crestor Oral [Active]; jd3 Eliquis Oral [Active]; escitalopram oxalate 10 mg Oral tab [Active]; gabapentin Oral [Active]; lisinopril Oral [Active]; Nexium Oral [Active]; - PMHx: 22:58 Neck Cancer; High Cholesterol; jd3 - PSHx: 22:58 trache; jd3 - Immunization history: Last tetanus immunization: unknown. - Social history:: Smoking status: unknown. - Ebola Screening: : Patient negative for fever greater than or equal to 101.5 degrees Fahrenheit, and additional compatible Ebola Virus Disease symptoms. ROS: 23:37 Unable to obtain ROS due to comatose state. gs Exam: 23:37 Abdomen/GI: Soft, non-tender, with normal bowel sounds. No distension or tympany. No gs guarding or rebound. No evidence of tenderness throughout. Back: No spinal tenderness. No costovertebral tenderness. Full range of motion. Skin: Warm, dry with normal turgor. Normal color with no rashes, no lesions, and no evidence of cellulitis. MS/ Extremity: Pulses equal, no cyanosis. Neurovascular intact. Full, normal range of motion. 23:37 Constitutional: The patient appears in obvious distress, severely distressed. 23:37 Head/face: Noted is contusion, that is superficial, of the right side of forehead. 23:37 Eyes: Pupils: are fixed and dilated. 23:37 ENT: Exam is negative for Dental exam: fractured teeth are noted. 23:37 Neck: tracheostomy patent. 23:37 Cardiovascular: Rate: bradycardic, Rhythm: regular, Pulses: no pulse deficits are appreciated. 23:37 Respiratory: severe repiratory distress is noted, Respirations: shallow respirations, that is severe. 23:37 Neuro: unable to fully test second to coma. Vital Signs: 22:45 BP 138 / 98; Pulse 52; lp1 22:59 BP 149 / 111; Pulse 48; Resp 19 A; Pulse Ox 100% on ETT ambu; Weight 77.11 kg; Height 6 jd3 ft. 2 in. (187.96 cm); Pain 0/10; 23:00 BP 140 / 93; Pulse 44; Resp 19; Pulse Ox 100% on 53% FiO2 ETT vent; lp1 23:08 Temp 87.9(R); lp1 23:20 BP 106 / 82; Pulse 42; Resp 14; Pulse Ox 99% on ETT vent; lp1 23:40 BP 102 / 80; Pulse 42; Resp 14; Pulse Ox 100% on 53% FiO2 ETT vent; lp1 10/10 00:00 BP 103 / 80; Pulse 41; Resp 14; Pulse Ox 100% on 53% FiO2 ETT vent; lp1 00:20 BP 114 / 86; Pulse 43; Resp 14; Pulse Ox 100% on 53% FiO2 ETT vent; lp1 00:40 BP 119 / 91; Pulse 43; Resp 14; Pulse Ox 100% on 53% FiO2 ETT vent; lp1 01:00 BP 134 / 96; Pulse 47; Resp 14; Pulse Ox 100% on 53% FiO2 ETT vent; lp1 01:20 BP 150 / 103; Pulse 51; Resp 14; Pulse Ox 100% on 53% FiO2 ETT vent; lp1 01:40 BP 163 / 110; Pulse 58; Resp 13; Pulse Ox 100% on 53% FiO2 ETT vent; lp1 02:00 BP 181 / 121; Pulse 74; Resp 14; Pulse Ox 99% on 53% FiO2 ETT vent; lp1 02:15 BP 153 / 100; Pulse 73; Resp 14; Temp 90.6(C); Pulse Ox 100% on 53% FiO2 ETT vent; lp1 02:30 BP 185 / 127; Pulse 79; Resp 14; Temp 92.6(C); Pulse Ox 99% on 53% FiO2 ETT vent; lp1 02:45 BP 135 / 97; Pulse 93; Resp 14; Pulse Ox 99% on 53% FiO2 ETT vent; lp1 03:00 BP 134 / 93; Pulse 108; Resp 16; Temp 93.1(C); Pulse Ox 98% on 53% FiO2 ETT vent; lp1 03:15 BP 128 / 88; Pulse 113; Resp 18; Temp 93.6(C); Pulse Ox 97% on 53% FiO2 ETT vent; lp1 03:30 BP 115 / 84; Pulse 127; Resp 14; Temp 93.9(C); Pulse Ox 97% on 50% FiO2 ETT vent; lp1 03:45 BP 104 / 83; Pulse 127; Resp 14; Temp 94.3(C); Pulse Ox 97% on 53% FiO2 ETT vent; lp1 04:00 BP 107 / 78; Pulse 130; Resp 14; Temp 94.8(C); Pulse Ox 97% on 53% FiO2 ETT vent; lp1 04:15 BP 104 / 77; Pulse 127; Resp 15; Temp 95.4(C); Pulse Ox 97% on 53% FiO2 ETT vent; lp1 04:30 BP 103 / 76; Pulse 121; Resp 16; Temp 95.7(C); Pulse Ox 97% on 53% FiO2 ETT vent; lp1 10/09 22:59 Body Mass Index 21.83 (77.11 kg, 187.96 cm) jd3 10/09 23:00 Rate of 14, Tidal Volume of 500, O2 53% lp1 David Coma Score: 23:00 Eye Response: none(1). Verbal Response: none(1). Motor Response: none(1). Total: 3. lp1 23:37 Eye Response: none(1). Verbal Response: none(1). Motor Response: none(1). Total: 3. gs Trauma Score (Adult): 23:00 Eye Response: none(0); Verbal Response: none(0); Motor Response: none(0); Systolic BP: lp1 > 89 mm Hg(4); Respiratory Rate: 6 to 9 per min(2); Decherd Score: 3; Trauma Score: 6 Procedures: 23:37 Intubation: Intubated trans tracheostomy with 7.5 mm ETT. was successful on first gs attempt. Ventilated with Ambu bag. ventilator. Tube secured with tape Placement verified by CXR, CO2 detector with (+) color change, O2 saturation after procedure was 100 %. Patient tolerated well. MDM: 22:28 Patient medically screened. 23:37 Data reviewed: vital signs. 23:37 Differential Diagnosis: CVA, electrolyte abnormality, hypoglycemia, intracranial bleed. Counseling: I had a detailed discussion with the patient and/or guardian regarding: the historical points, exam findings, and any diagnostic results supporting the discharge/admit diagnosis, the need to transfer to another facility. Response to treatment: There is no appreciated change of the patient's symptoms at this time. 10/09 22:29 Order name: Basic Metabolic Panel; Complete Time: 02:00 10/09 22:29 Order name: CBC with Diff; Complete Time: 02:00 10/09 22:29 Order name: XRAY Chest (1 view) 10/09 22:29 Order name: Type And Screen; Complete Time: 02:00 10/09 22:58 Order name: PT-INR; Complete Time: 02:00 jd3 10/10 00:27 Order name: CBC Smear Scan; Complete Time: 02:00 EDMS 10/09 22:29 Order name: CT Traumagram (Head C Spine CAP W Con) 10/09 22:29 Order name: Labs collected and sent; Complete Time: 22:59 gs Administered Medications: 22:29 Drug: NS 0.9% 1000 ml {Note: administered by Rosalee FATIMA.} Route: IV; Rate: 125 ml/hr; jd3 Site: left forearm; 10/10 04:39 Follow up: IV Status: Infusion continued upon transfer lp1 02:35 Drug: Cardene 2.5 mg/hr Route: IV; Rate: calculated rate; Site: left forearm; jd3 04:39 Follow up: IV Status: Infusion continued upon transfer lp1 Disposition: 10/09 23:37 Critical Care:. Disposition: 10/09/18 23:[address] [facility]. Diagnosis is Nontraumatic intracerebral hemorrhage. - Reason for transfer: Higher level of care. - Accepting physician is [place]. - Condition is Stable. - Problem is new. - Symptoms are unchanged. Critical care time excluding procedures: 23:37 Critical care time: Bedside Care: 10 minutes, Consultation: 10 minutes, Family gs Intervention: 10 minutes. Total time: 30 minutes Signatures: Dispatcher [employer] EDLissett Mcneill RN RN lp1 Ryan Barrow MD MD gs Davies, Jonathon RN RN jd3 Corrections: (The following items were deleted from the chart) 22:50 22:30 Head C Spine MPR Wo Con+CT.RAD.BRZ ordered. [facility] 10/10 05:11 10/09 23:54 10/09/2018 23:[address] [facility]. lp1 Diagnosis is Nontraumatic intracerebral hemorrhage. Reason for transfer: Higher level of care. Accepting physician is [place]. Condition is Stable. Problem is new. Symptoms are unchanged. gs
[2018-10-10 00:08] LABS: Protime INR 1.05
[2018-10-10 00:26] LABS: Blood Morphology Comment NOT SEEN (NOT SEEN); Platelet Estimate ADEQ; Urine White Blood Cell Casts OK
[2018-10-10] MEDS ORDERED: Nicardipine/NS 25 MG/250 ML KIT IV ONE (02:36)
--- NOTE | 2018-10-10 08:36 | RAD REPORT ---
EXAM DESCRIPTION: Nayla Single View10/09/2018 10:59 pm CLINICAL HISTORY: Chest pain COMPARISON: none FINDINGS: A tracheostomy tube has its tip in the right mainstem bronchus Right basilar opacity is seen. Left lung appears clear Heart is normal size IMPRESSION: Tracheostomy tube with its tip in the right mainstem bronchus Right basilar opacity may represent atelectasis or pneumonia
--- NOTE | 2018-10-13 11:17 | RAD REPORT ---
EXAM DESCRIPTION: CT - Head C Spine Bradley Lopez - 10/10/2018 4:08 am CLINICAL HISTORY: WEAKNESS COMPARISON: None Available. TECHNIQUE: Multiple helical axial tomographic images were obtained of the head and cervical spine wi thout intravenous contrast (97 mL Isovue-300). Subsequent axial images were obtained of the chest fol lowing administration of intravenous contrast with images obtained in the arterial phase. Additional images were subsequently obtained the abdomen and pelvis in the parenchymal phase. Coronal and sagitt al reformatted images were obtained. This exam was performed according to our departmental dose-optim ization program, which includes automated exposure control, adjustment of the mA and/or kV according to patient size and/or use of iterative reconstruction technique. FINDINGS: CT HEAD: A large acute intraparenchymal hemorrhage is demonstrated in the left cerebral hemisphere centered on the left basal ganglia measuring up to 9.8 cm x 5.4 cm in greatest axial dimensions and 6.7 cm crani ocaudally. There is mild hypoattenuation adjacent to the left cerebral hemorrhage suggestive of edema . There is extension of hemorrhage into the ventricular system. Left lateral ventricle appears compre ssed by the hemorrhage and contains blood products. Blood products in the third and fourth ventricles noted. Moderate amount of blood products in the right lateral ventricle demonstrated. There is mod erate dilatation of the atrium and temporal horn of the right lateral ventricle which may be related to entrapment. Hypoattenuation in the cerebral white matter adjacent to the atrium and occipital horn the right lateral ventricle demonstrated suggestive of transependymal flow. There is approximately 1 cm rightward midline shift. There is diminished sulcation both cerebral [place] spheres suggestive of edema. There is effacement of the basilar cisterns. Cerebellar tonsils approach the foramen magnum. Trace fluid in the maxillary sinuses is demonstrated. There is mild ethmoid sinus mucosal thickening. Mastoid air cells and middle ear spaces are clear. Orbits and orbital contents are unremarkable. Areas of right frontal and temporal scalp swelling are present. Osseous structures are unremarkable. CT cervical spine: No evidence for an acute fracture. Multilevel degenerative changes demonstrated with disc space narro wing and osteophyte formation associated with sclerosis. There is reversal of the normal cervical zelalem dosis. Ankylosis of left facet joints at C2-3 changes demonstrated. Right lower facial soft tissue swelling is present. There is a 7 mm x 5 mm tubular device in the lowe r cervical esophagus (series 304, image 40). Carotid atherosclerosis present. CT chest: Thyroid gland: unremarkable. Axilla: unremarkable. Pulmonary arteries: Pulmonary arteries appear patent. No evidence of central pulmonary embolism. Aorta: No evidence of aortic dissection or aneurysm. Mediastinum: Tracheostomy tube is present with tip slightly in the right mainstem bronchus. No adenop athy. Heart: Heart is normal in size. Coronary artery atherosclerosis is present. Lungs/airways: No consolidation. Airways are patent. Subsegmental atelectasis in the right middle and lower lobes noted. Pleural spaces: No significant pleural effusion. No pneumothorax. Osseous: Unremarkable. Soft tissues: Unremarkable. CT abdomen and pelvis: Liver: There are a few rounded hypodense structures in the left hepatic lobe measuring up to 2.1 cm s uggestive of cysts. Subcentimeter hypodensity too small to characterize in the right hepatic lobe is present. Gallbladder/biliary: Appears unremarkable Pancreas: Unremarkable. No evidence of ductal enlargement. Spleen: Appears unremarkable. No splenomegaly. Adrenals: Unremarkable. Kidneys and ureters: No evidence of hydronephrosis. Normal enhancement. Bladder: Bladder appears moderately distended. Pelvic organs: Unremarkable. Bowel: G-tube is present. Colonic diverticula are present. No evidence of bowel obstruction. No bow el wall thickening. Appendix appears unremarkable. Vasculature: Aortoiliac atherosclerosis present. There is a mildly ectatic appearance of the infraren al abdominal aorta measuring up to 2.6 cm. Peritoneum: No free air. No significant free fluid. Lymph nodes: Unremarkable. Soft tissues: Unremarkable. Bones: Degenerative changes of the lumbar spine noted. Chronic appearing mild depressions of the supe rior endplates of L3 and L4 noted. IMPRESSION: 1. Large acute left cerebral intraparenchymal hemorrhage with mass effect, ventricular e xtension, and rightward midline shift. Possible entrapment of the occipital horn and temporal horn of the right lateral ventricle with adjacent low attenuation concerning for transependymal flow. Efface ment of the basilar cisterns and encroachment of the cerebellar tonsils on the foramen magnum. 2. Tubular device in the lower cervical esophagus of uncertain significance, possibly representing a foreign body. 3. No evidence for an acute fracture of cervical spine. Cervical spine degenerative changes. 4. Tracheostomy tube tip slightly in the right mainstem bronchus. 5. No evidence for an acute process within the chest, abdomen, or pelvis. 6. Aortic atherosclerotic disease. Mildly ectatic appearance of the infrarenal abdominal aorta. THIS REPORT CONTAINS FINDINGS THAT MAY BE CRITICAL TO PATIENT CARE: The findings were verbally discu ssed via telephone conference with Dr. Barrow by Dr. Cartagena at 2231 hours central time on October 09, 2018. The results were acknowledged and understood. Electronically signed by: Rich Cartagena MD 10/10/2018 12:07 AM CDT ADDENDUM #1 Nonspecific 1 cm enhancing nodule in the spleen is demonstrated and may represent a hemangioma or ham artoma. Electronically signed by: Rich Cartagena MD 10/10/2018 2:27 AM CDT End of Addendum EXAM DESCRIPTION: Head C Spine Cap W Con CLINICAL HISTORY: WEAKNESS COMPARISON: None Available. TECHNIQUE: Multiple helical axial tomographic images were obtained of the head and cervical spine wi thout intravenous contrast (97 mL Isovue-300). Subsequent axial images were obtained of the chest fol lowing administration of intravenous contrast with images obtained in the arterial phase. Additional images were subsequently obtained the abdomen and pelvis in the parenchymal phase. Coronal and sagitt al reformatted images were obtained. This exam was performed according to our departmental dose-optim ization program, which includes automated exposure control, adjustment of the mA and/or kV according to patient size and/or use of iterative reconstruction technique. FINDINGS: CT HEAD: A large acute intraparenchymal hemorrhage is demonstrated in the left cerebral hemisphere centered on the left basal ganglia measuring up to 9.8 cm x 5.4 cm in greatest axial dimensions and 6.7 cm crani ocaudally. There is mild hypoattenuation adjacent to the left cerebral hemorrhage suggestive of edema . There is extension of hemorrhage into the ventricular system. Left lateral ventricle appears compre ssed by the hemorrhage and contains blood products. Blood products in the third and fourth ventricles noted. Moderate amount of blood products in the right lateral ventricle demonstrated. There is mod erate dilatation of the atrium and temporal horn of the right lateral ventricle which may be related to entrapment. Hypoattenuation in the cerebral white matter adjacent to the atrium and occipital horn the right lateral ventricle demonstrated suggestive of transependymal flow. There is approximately 1 cm rightward midline shift. There is diminished sulcation both cerebral [place] spheres suggestive of edema. There is effacement of the basilar cisterns. Cerebellar tonsils approach the foramen magnum. Trace fluid in the maxillary sinuses is demonstrated. There is mild ethmoid sinus mucosal thickening. Mastoid air cells and middle ear spaces are clear. Orbits and orbital contents are unremarkable. Areas of right frontal and temporal scalp swelling are present. Osseous structures are unremarkable. CT cervical spine: No evidence for an acute fracture. Multilevel degenerative changes demonstrated with disc space narro wing and osteophyte formation associated with sclerosis. There is reversal of the normal cervical zelalem dosis. Ankylosis of left facet joints at C2-3 changes demonstrated. Right lower facial soft tissue swelling is present. There is a 7 mm x 5 mm tubular device in the lowe r cervical esophagus (series 304, image 40). Carotid atherosclerosis present. CT chest: Thyroid gland: unremarkable. Axilla: unremarkable. Pulmonary arteries: Pulmonary arteries appear patent. No evidence of central pulmonary embolism. Aorta: No evidence of aortic dissection or aneurysm. Mediastinum: Tracheostomy tube is present with tip slightly in the right mainstem bronchus. No adenop athy. Heart: Heart is normal in size. Coronary artery atherosclerosis is present. Lungs/airways: No consolidation. Airways are patent. Subsegmental atelectasis in the right middle and lower lobes noted. Pleural spaces: No significant pleural effusion. No pneumothorax. Osseous: Unremarkable. Soft tissues: Unremarkable. CT abdomen and pelvis: Liver: There are a few rounded hypodense structures in the left hepatic lobe measuring up to 2.1 cm s uggestive of cysts. Subcentimeter hypodensity too small to characterize in the right hepatic lobe is present. Gallbladder/biliary: Appears unremarkable Pancreas: Unremarkable. No evidence of ductal enlargement. Spleen: Appears unremarkable. No splenomegaly. Adrenals: Unremarkable. Kidneys and ureters: No evidence of hydronephrosis. Normal enhancement. Bladder: Bladder appears moderately distended. Pelvic organs: Unremarkable. Bowel: G-tube is present. Colonic diverticula are present. No evidence of bowel obstruction. No bow el wall thickening. Appendix appears unremarkable. Vasculature: Aortoiliac atherosclerosis present. There is a mildly ectatic appearance of the infraren al abdominal aorta measuring up to 2.6 cm. Peritoneum: No free air. No significant free fluid. Lymph nodes: Unremarkable. Soft tissues: Unremarkable. Bones: Degenerative changes of the lumbar spine noted. Chronic appearing mild depressions of the supe rior endplates of L3 and L4 noted. IMPRESSION: 1. Large acute left cerebral intraparenchymal hemorrhage with mass effect, ventricular e xtension, and rightward midline shift. Possible entrapment of the occipital horn and temporal horn of the right lateral ventricle with adjacent low attenuation concerning for transependymal flow. Efface ment of the basilar cisterns and encroachment of the cerebellar tonsils on the foramen magnum. 2. Tubular device in the lower cervical esophagus of uncertain significance, possibly representing a foreign body. 3. No evidence for an acute fracture of cervical spine. Cervical spine degenerative changes. 4. Tracheostomy tube tip slightly in the right mainstem bronchus. 5. No evidence for an acute process within the chest, abdomen, or pelvis. 6. Aortic atherosclerotic disease. Mildly ectatic appearance of the infrarenal abdominal aorta. THIS REPORT CONTAINS FINDINGS THAT MAY BE CRITICAL TO PATIENT CARE: The findings were verbally discu ssed via telephone conference with Dr. Barrow by Dr. Cartagena at 2231 hours central time on October 09, 2018. The results were acknowledged and understood. Electronically signed by: Rich Cartagena MD 10/10/2018 12:07 AM CDT Due to temporary technical issues with the PACS/Fluency reporting system, reports are being signed by the in house radiologist as a courtesy to ensure prompt reporting. The interpreting radiologist is f ully responsible for the content of the report.
== END 2018-10-10 05:11 | disposition short-term general hospital (02) ==
LOC: ER 22:25
PROC: 0BH17EZ Insertion of Endotracheal Airway into Trachea, Via Natural or Artificial Opening (ICD-10-PCS; principal; 2018-10-10)
PROC: 5A1935Z Respiratory Ventilation, Less than 24 Consecutive Hours (ICD-10-PCS; 2018-10-10)
DX: I61.9 Nontraumatic intracerebral hemorrhage, unspecified (principal); W19.XXXA Unspecified fall, initial encounter; Y93.9 Activity, unspecified; Y92.9 Unspecified place or not applicable; Z79.82 Long term (current) use of aspirin; Z85.89 Personal history of malignant neoplasm of other organs and systems; E78.00 Pure hypercholesterolemia, unspecified
CPT/HCPCS: 96365; 96361; 85025; 80048; 36415; 86900; 86850; 85610; 86901; 70450; 72125; 71260; 74177; 71045; 94002; 94003; 31500; 51702; 99291; 96366; Q9967